=== PATIENT | male | born 1970 | race Two or more races ===

== ENCOUNTER 2021-12-01 11:12 | Inpatient (IN) | payer MEDICAID ==
[~2021-12-01] VITALS: Ht 167.6 cm; Wt 78.0 kg
[2021-12-01] MEDS ORDERED: SODIUM CHLORIDE 0.9% 1,000 ML IVB ONE (11:30)
[2021-12-01] MEDS ORDERED: KETOROLAC TROMETH 30 MG/ML 1ML VIAL IV ONE (11:30)
[2021-12-01 12:24] LABS: Albumin 4.1 g/dL (3.4-5.0); Calcium 9.3 mg/dL (8.5-10.1); Potassium 3.9 mmol/L (3.5-5.1)
[2021-12-01 12:32] LABS: BUN/Creatinine Ratio 19.8; Bilirubin, Total 0.5 mg/dL (0.2-1.0); Total Protein 7.5 g/dL (6.4-8.2)
[2021-12-01 12:55] LABS: Basophils # (auto) 0 10 ^3/uL (0-0.2); Basophils % (auto) 0.5 % (0.0-2.0); Eosinophils # (auto) 0.1 10 ^3/uL (0-0.8); Eosinophils % (auto) 2.1 % (0.0-7.0); Hematocrit 41.4 % (41.0-53.0); Hemoglobin 14.5 g/dL (13.5-17.5); Lymphocytes % (auto) 30.5 % (10.0-50.0); Mean Corpuscular Hemoglobin 30.8 pg (28.0-32.0); Mean Corpuscular Hgb Conc. 34.9 g/dL (32.0-36.0); Mean Corpuscular Volume 88.2 fL (80.0-100.0); Monocytes # (auto) 0.4 10 ^3/uL (0-1.3); Monocytes % (auto) 6.3 % (0.0-12.0); Neutrophils % (auto) 60.6 % (37.0-80.0); Nucleated Red Blood Cells % 0.1 %; Red Blood Cells 4.69 10^6/uL (4.5-5.90); Red Cell Distribution Width 12.6 % (11.8-14.3); White Blood Cell 6.5 10^3/uL (4.4-10.8)
[2021-12-01] MEDS ORDERED: NITROGLYCERIN 0.4 MG SL TAB SL PRN (13:00)
[2021-12-01] MEDS ORDERED: MORPHINE SULFATE INJECTION 2 MG/ML SYRG IV PRN (13:00)
[2021-12-01] MEDS ORDERED: LACTULOSE 20Gm/30ML SOLN PO PRN (13:15)
[2021-12-01] MEDS ORDERED: HYDROcodone-ACET 5/325MG TAB PO PRN ×2 (13:15)
[2021-12-01] MEDS ORDERED: HYDROcodone-ACET 5/325MG TAB PO ONE (13:15)
[2021-12-01] MEDS ORDERED: cefTRIAXone 1GM/50ML D5W 50 ML IV ONE (13:15)
[2021-12-01] MEDS ORDERED: hydrALAZINE HCL 20 MG/ML VL IV PRN (13:15)
[2021-12-01] MEDS ORDERED: LORazepam 0.5 MG TAB PO PRN (13:15)
[2021-12-01] MEDS ORDERED: DOCUSATE SOD 100 MG CAP PO PRN (13:15)
[2021-12-01] MEDS ORDERED: ONDANSETRON HCL 4 MG/2 ML VIAL IV PRN (13:15)
[2021-12-01 13:25] LABS: Urine Bacteria NONE SEEN /hpf (None Seen); Urine Blood 2+ /uL (Negative); Urine Mucus FEW (None Seen); Urine Specific Gravity 1.019 (1.001-1.035); Urine WBC 16 /hpf (0 - 3)
[2021-12-01] MEDS: SODIUM CHLORIDE 0.9% 1,000 ML IV SCH (14:26)
[2021-12-01 14:43] LABS: Phosphorus 4.2 mg/dL (2.5-4.90)
[2021-12-01 14:44] LABS: INR 1.01 (0.9-1.15); Partial Thromboplastin Time 26.4 sec (23.6-33.0)
[2021-12-01 17:00] VITALS: BP 128/75
[2021-12-01] MEDS: TAMSULOSIN HYDROCHLORIDE 0.4 MG CAP PO SCH (17:25)
[2021-12-01 20:30] VITALS: BP 117/82
[2021-12-01] MEDS: ATORVASTATIN 20 MG TAB PO SCH (22:13)
[2021-12-02] MEDS: SODIUM CHLORIDE 0.9% 1,000 ML IV SCH ×2 (05:55→21:09)
[2021-12-02 06:00] VITALS: BP 108/75
[2021-12-02 08:00] VITALS: BP 106/71
[2021-12-02 08:37] LABS: Basophils # (auto) 0 10 ^3/uL (0-0.2); Basophils % (auto) 0.3 % (0.0-2.0); Eosinophils # (auto) 0.2 10 ^3/uL (0-0.8); Eosinophils % (auto) 3.1 % (0.0-7.0); Hematocrit 36.9 % (41.0-53.0); Hemoglobin 13.2 g/dL (13.5-17.5); Lymphocytes # (auto) 1.7 10 ^3/uL (0.4-5.4); Lymphocytes % (auto) 32.6 % (10.0-50.0); Mean Corpuscular Hemoglobin 31.3 pg (28.0-32.0); Mean Corpuscular Hgb Conc. 35.8 g/dL (32.0-36.0); Mean Corpuscular Volume 87.3 fL (80.0-100.0); Monocytes # (auto) 0.3 10 ^3/uL (0-1.3); Monocytes % (auto) 6.1 % (0.0-12.0); Neutrophils % (auto) 57.9 % (37.0-80.0); Nucleated Red Blood Cells % 0.1 %; Potassium 3.6 mmol/L (3.5-5.1); Red Blood Cells 4.23 10^6/uL (4.5-5.90); Red Cell Distribution Width 12.7 % (11.8-14.3); White Blood Cell 5.3 10^3/uL (4.4-10.8)
[2021-12-02 08:48] LABS: INR 1.03 (0.9-1.15); Partial Thromboplastin Time 27.1 sec (23.6-33.0)
[2021-12-02 09:00] VITALS: BP 106/71
[2021-12-02 09:13] LABS: Amphetamine Screen, Urine NEGATIVE (NEGATIVE); Barbiturate Scree,Urine NEGATIVE (NEGATIVE); Benzodiazephine Screen, Urine NEGATIVE (NEGATIVE); Cannabinoid Screen, Urine NEGATIVE (NEGATIVE); Cocaine Screen, Urine NEGATIVE (NEGATIVE); Opiate Scree,Urine NEGATIVE (NEGATIVE); Phencyclidine Screen, Urine NEGATIVE (NEGATIVE)
[2021-12-02] MEDS: ENOXAPARIN SOD 40 MG/0.4 ML SYRINGE SC SCH (10:06)
[2021-12-02] MEDS: ASPirin 81 mg TAB PO SCH (10:06)
[2021-12-02 10:27] LABS: Albumin 3.3 g/dL (3.4-5.0); BUN/Creatinine Ratio 22.6; Bilirubin, Total 0.7 mg/dL (0.2-1.0); Calcium 8.3 mg/dL (8.5-10.1); Magnesium 2.3 mg/dL (1.6-2.6); Phosphorus 2.8 mg/dL (2.5-4.90); Total Protein 6.5 g/dL (6.4-8.2); Uric Acid 5.5 mg/dL (3.5-7.2)
[2021-12-02] MEDS: cefTRIAXone 1GM/50ML D5W 50 ML IV SCH (12:29)
[2021-12-02 13:00] VITALS: BP 115/78
[2021-12-02 17:00] VITALS: BP 111/76
[2021-12-02] MEDS: TAMSULOSIN HYDROCHLORIDE 0.4 MG CAP PO SCH (17:21)
[2021-12-02] MEDS: ATORVASTATIN 20 MG TAB PO SCH (21:09)
[2021-12-02 21:44] VITALS: BP 114/73
[2021-12-03 04:33] VITALS: BP 108/63
[2021-12-03 07:19] LABS: Potassium 3.6 mmol/L (3.5-5.1)
[2021-12-03 07:34] LABS: Albumin 3.6 g/dL (3.4-5.0); BUN/Creatinine Ratio 18.9; Basophils # (auto) 0 10 ^3/uL (0-0.2); Basophils % (auto) 0.6 % (0.0-2.0); Bilirubin, Total 0.8 mg/dL (0.2-1.0); Calcium 8.7 mg/dL (8.5-10.1); Eosinophils # (auto) 0.2 10 ^3/uL (0-0.8); Eosinophils % (auto) 3.6 % (0.0-7.0); Hematocrit 38.5 % (41.0-53.0); Hemoglobin 13.8 g/dL (13.5-17.5); Lymphocytes # (auto) 1.8 10 ^3/uL (0.4-5.4); Lymphocytes % (auto) 30.6 % (10.0-50.0); Magnesium 1.8 mg/dL (1.6-2.6); Mean Corpuscular Hemoglobin 31.2 pg (28.0-32.0); Mean Corpuscular Hgb Conc. 35.8 g/dL (32.0-36.0); Mean Corpuscular Volume 87.3 fL (80.0-100.0); Monocytes # (auto) 0.3 10 ^3/uL (0-1.3); Monocytes % (auto) 5.7 % (0.0-12.0); Neutrophils # (auto) 3.5 10 ^3/uL (1.6-8.6); Neutrophils % (auto) 59.5 % (37.0-80.0); Nucleated Red Blood Cells % 0.1 %; Phosphorus 3.3 mg/dL (2.5-4.90); Red Blood Cells 4.41 10^6/uL (4.5-5.90); Red Cell Distribution Width 12.6 % (11.8-14.3); White Blood Cell 5.9 10^3/uL (4.4-10.8)
[2021-12-03 07:46] LABS: INR 1.02 (0.9-1.15); Partial Thromboplastin Time 27.7 sec (23.6-33.0)
[2021-12-03 09:00] VITALS: BP 108/72
[2021-12-03] MEDS: ENOXAPARIN SOD 40 MG/0.4 ML SYRINGE SC SCH (09:56)
[2021-12-03] MEDS: ASPirin 81 mg TAB PO SCH (09:56)
[2021-12-03] MEDS: cefTRIAXone 1GM/50ML D5W 50 ML IV SCH (09:56)
[2021-12-03 13:00] VITALS: BP 99/52
[2021-12-03] MEDS: SODIUM CHLORIDE 0.9% 1,000 ML IV SCH (15:15)
[2021-12-03 17:00] VITALS: BP_SYST 102; BP_SYST 137; BP_DIAS 56; BP_DIAS 67
[2021-12-03] MEDS: TAMSULOSIN HYDROCHLORIDE 0.4 MG CAP PO SCH (18:02)
[2021-12-03] MEDS: ATORVASTATIN 20 MG TAB PO SCH (21:01)
[2021-12-04] VITALS (7 sets, daily range): BP systolic 107–124; BP diastolic 64–81
[2021-12-04 06:02] LABS: Basophils # (auto) 0 10 ^3/uL (0-0.2); Basophils % (auto) 0.4 % (0.0-2.0); Eosinophils # (auto) 0.2 10 ^3/uL (0-0.8); Eosinophils % (auto) 3.3 % (0.0-7.0); Hematocrit 37.8 % (41.0-53.0); Hemoglobin 13.7 g/dL (13.5-17.5); Lymphocytes # (auto) 2.3 10 ^3/uL (0.4-5.4); Lymphocytes % (auto) 35.5 % (10.0-50.0); Mean Corpuscular Hemoglobin 31.6 pg (28.0-32.0); Mean Corpuscular Hgb Conc. 36.2 g/dL (32.0-36.0); Mean Corpuscular Volume 87.3 fL (80.0-100.0); Monocytes # (auto) 0.4 10 ^3/uL (0-1.3); Monocytes % (auto) 6.5 % (0.0-12.0); Neutrophils # (auto) 3.5 10 ^3/uL (1.6-8.6); Neutrophils % (auto) 54.3 % (37.0-80.0); Red Blood Cells 4.33 10^6/uL (4.5-5.90); Red Cell Distribution Width 12.6 % (11.8-14.3); White Blood Cell 6.4 10^3/uL (4.4-10.8)
[2021-12-04 06:14] LABS: Potassium 3.5 mmol/L (3.5-5.1)
[2021-12-04 06:17] LABS: Albumin 3.5 g/dL (3.4-5.0); BUN/Creatinine Ratio 13.7; Calcium 8.8 mg/dL (8.5-10.1)
[2021-12-04 06:24] LABS: INR 1.03 (0.9-1.15)
[2021-12-04 06:33] LABS: Bilirubin, Total 0.8 mg/dL (0.2-1.0); Total Protein 6.9 g/dL (6.4-8.2)
[2021-12-04] MEDS: cefTRIAXone 1GM/50ML D5W 50 ML IV SCH (08:29)
[2021-12-04] MEDS: SODIUM CHLORIDE 0.9% 1,000 ML IV SCH (08:30)
[2021-12-04] MEDS: ASPirin 81 mg TAB PO SCH (09:30)
[2021-12-04] MEDS: ENOXAPARIN SOD 40 MG/0.4 ML SYRINGE SC SCH (09:30)
[2021-12-04] MEDS ORDERED: IODIXANOL 320MG/ML 100ML BTL IV ONE (10:36)
[2021-12-04] MEDS ORDERED: LIDOCAINE 2%HCL (LOCAL ANESTH.) INJ 20ML MDV ONE (10:37)
[2021-12-04] MEDS ORDERED: MIDAZOLAM HCL 2MG/2ML 2ml VIAL (1mg/ml) ONE (12:06)
[2021-12-04] MEDS ORDERED: fentaNYL CITRATE 100 MCG/2 ML VL ONE (12:06)
[2021-12-04] MEDS: MORPHINE SULFATE INJECTION 2 MG/ML SYRG IV PRN ×2 (14:25→20:43)
[2021-12-04] MEDS: TAMSULOSIN HYDROCHLORIDE 0.4 MG CAP PO SCH (18:12)
[2021-12-04] MEDS: ATORVASTATIN 20 MG TAB PO SCH (21:36)
[2021-12-05] MEDS: SODIUM CHLORIDE 0.9% 1,000 ML IV SCH (00:35)
[2021-12-05 05:32] VITALS: BP 98/64
[2021-12-05 06:05] LABS: Basophils # (auto) 0 10 ^3/uL (0-0.2); Basophils % (auto) 0.5 % (0.0-2.0); Eosinophils # (auto) 0.2 10 ^3/uL (0-0.8); Eosinophils % (auto) 2.5 % (0.0-7.0); Hematocrit 39.3 % (41.0-53.0); Hemoglobin 13.8 g/dL (13.5-17.5); Lymphocytes # (auto) 2.4 10 ^3/uL (0.4-5.4); Lymphocytes % (auto) 28.4 % (10.0-50.0); Mean Corpuscular Hemoglobin 30.9 pg (28.0-32.0); Mean Corpuscular Hgb Conc. 35.2 g/dL (32.0-36.0); Mean Corpuscular Volume 87.7 fL (80.0-100.0); Monocytes # (auto) 0.5 10 ^3/uL (0-1.3); Monocytes % (auto) 6.5 % (0.0-12.0); Neutrophils # (auto) 5.2 10 ^3/uL (1.6-8.6); Neutrophils % (auto) 62.1 % (37.0-80.0); Red Blood Cells 4.48 10^6/uL (4.5-5.90); Red Cell Distribution Width 12.8 % (11.8-14.3); White Blood Cell 8.4 10^3/uL (4.4-10.8)
[2021-12-05 06:27] LABS: Calcium 8.5 mg/dL (8.5-10.1); Potassium 3.8 mmol/L (3.5-5.1)
[2021-12-05 06:29] LABS: BUN/Creatinine Ratio 16.5
[2021-12-05] MEDS: cefTRIAXone 1GM/50ML D5W 50 ML IV SCH (08:10)
[2021-12-05 08:30] VITALS: BP 103/56
[2021-12-05 09:00] VITALS: BP 103/56
[2021-12-05] MEDS: ENOXAPARIN SOD 40 MG/0.4 ML SYRINGE SC SCH ×2 (09:43→09:47)
[2021-12-05] MEDS: ASPirin 81 mg TAB PO SCH (09:43)
[2021-12-05] MEDS ORDERED: LEVO750T64 PO (10:26)
[2021-12-05 13:00] VITALS: BP 107/78
[2021-12-05 13:02] VITALS: BP 107/78
== END 2021-12-05 17:02 | disposition home or self-care (01) | DRG 463 ==
LOC: ER 11:12 → OVERFLOW 12:53 → WEST WING 15:30
PROVIDERS: ADMIT Hospitalist; ATTEND Internal Medicine Pulmonary Disease
PROC: 0T9330Z Drainage of Right Kidney Pelvis with Drainage Device, Percutaneous Approach (ICD-10-PCS; principal; 2021-12-04)
PROC: BT41ZZZ Ultrasonography of Right Kidney (ICD-10-PCS; 2021-12-04)
PROC: BT1D1ZZ Fluoroscopy of Right Kidney, Ureter and Bladder using Low Osmolar Contrast (ICD-10-PCS; 2021-12-04)
DX: N13.6 Pyonephrosis (principal); E66.01 Morbid (severe) obesity due to excess calories; N20.2 Calculus of kidney with calculus of ureter; E78.5 Hyperlipidemia, unspecified; F17.210 Nicotine dependence, cigarettes, uncomplicated; Z98.1 Arthrodesis status; Z68.27 Body mass index [BMI] 27.0-27.9, adult; Z20.822 Contact with and (suspected) exposure to COVID-19
CPT/HCPCS: 36415; 50432; 74176; 74425; 76000; 76942; 80048; 80053; 80061; 80307; 81001; 83036; 83690; 83735; 83880; 84100; 84443; 84484; 84550; 85025; 85379; 85610; 85730; 87040; 87070; 87086; 87205; 87426; 93005; 96361; 96365; 96375; 99152; C1729; G0378; J0696; J1885; J2250; Q9967

== ENCOUNTER 2021-12-22 18:49 | Emergency (ER) | payer MEDICAID ==
[~2021-12-22] VITALS: Ht 167.6 cm; Wt 85.3 kg
[~2021-12-22 18:49] MED LIST: LEVO750T64 PO
[2021-12-22 19:47] LABS: Basophils # (auto) 0 10 ^3/uL (0-0.2); Basophils % (auto) 0.6 % (0.0-2.0); Eosinophils # (auto) 0.2 10 ^3/uL (0-0.8); Eosinophils % (auto) 2.6 % (0.0-7.0); Hematocrit 39.6 % (41.0-53.0); Hemoglobin 14.3 g/dL (13.5-17.5); Lymphocytes # (auto) 2.7 10 ^3/uL (0.4-5.4); Lymphocytes % (auto) 39.9 % (10.0-50.0); Mean Corpuscular Hemoglobin 31.2 pg (28.0-32.0); Mean Corpuscular Volume 86.5 fL (80.0-100.0); Monocytes # (auto) 0.4 10 ^3/uL (0-1.3); Monocytes % (auto) 6.4 % (0.0-12.0); Neutrophils # (auto) 3.4 10 ^3/uL (1.6-8.6); Neutrophils % (auto) 50.5 % (37.0-80.0); Nucleated Red Blood Cells % 0.1 %; Red Blood Cells 4.58 10^6/uL (4.5-5.90); Red Cell Distribution Width 12.6 % (11.8-14.3); White Blood Cell 6.7 10^3/uL (4.4-10.8)
[2021-12-22 20:01] LABS: Albumin 3.9 g/dL (3.4-5.0); Calcium 9.1 mg/dL (8.5-10.1); Potassium 3.7 mmol/L (3.5-5.1)
[2021-12-22 20:05] LABS: Bilirubin, Total 0.4 mg/dL (0.2-1.0); Total Protein 7.7 g/dL (6.4-8.2)
[2021-12-22 22:49] LABS: Urine Bacteria FEW /hpf (None Seen); Urine Blood 1+ /uL (Negative); Urine Mucus FEW (None Seen); Urine Specific Gravity 1.014 (1.001-1.035); Urine WBC 34 /hpf (0 - 3)
[2021-12-23 02:30] VITALS: BP 135/72
== END 2021-12-23 02:51 | disposition home or self-care (01) ==
LOC: ER 18:49
DX: Z43.6 Encounter for attention to other artificial openings of urinary tract (principal); E78.5 Hyperlipidemia, unspecified; F17.210 Nicotine dependence, cigarettes, uncomplicated; Z79.899 Other long term (current) drug therapy
CPT/HCPCS: 36415; 80053; 81001; 83605; 85025; 93005

== ENCOUNTER 2022-02-17 21:26 | Inpatient (IN) | payer MEDICAID ==
[~2022-02-17] VITALS: Ht 167.6 cm; Wt 84.1 kg
[2022-02-18 03:01] LABS: Urine Bacteria NONE SEEN /hpf (None Seen); Urine Blood 1+ /uL (Negative); Urine Mucus FEW (None Seen); Urine Specific Gravity 1.019 (1.001-1.035); Urine WBC 57 /hpf (0 - 3)
[2022-02-18] MEDS ORDERED: PROMETHAZINE HCL 25 MG/ML 1ML IV ONE (09:45)
[2022-02-18] MEDS ORDERED: KETOROLAC TROMETH 30 MG/ML 1ML VIAL IV ONE (09:45)
[2022-02-18 10:39] LABS: Basophils # (auto) 0 10 ^3/uL (0-0.2); Basophils % (auto) 0.4 % (0.0-2.0); Eosinophils # (auto) 0.2 10 ^3/uL (0-0.8); Eosinophils % (auto) 3.4 % (0.0-7.0); Hematocrit 39.1 % (41.0-53.0); Hemoglobin 13.8 g/dL (13.5-17.5); Lymphocytes # (auto) 1.9 10 ^3/uL (0.4-5.4); Lymphocytes % (auto) 32.4 % (10.0-50.0); Mean Corpuscular Hemoglobin 31.3 pg (28.0-32.0); Mean Corpuscular Hgb Conc. 35.4 g/dL (32.0-36.0); Mean Corpuscular Volume 88.5 fL (80.0-100.0); Monocytes # (auto) 0.4 10 ^3/uL (0-1.3); Monocytes % (auto) 6.5 % (0.0-12.0); Neutrophils # (auto) 3.3 10 ^3/uL (1.6-8.6); Neutrophils % (auto) 57.3 % (37.0-80.0); Nucleated Red Blood Cells % 0.1 %; Red Blood Cells 4.41 10^6/uL (4.5-5.90); Red Cell Distribution Width 12.7 % (11.8-14.3); White Blood Cell 5.7 10^3/uL (4.4-10.8)
[2022-02-18 10:45] LABS: Potassium 3.9 mmol/L (3.5-5.1)
[2022-02-18 10:52] LABS: Albumin 3.7 g/dL (3.4-5.0); BUN/Creatinine Ratio 14.6; Bilirubin, Total 0.9 mg/dL (0.2-1.0); Total Protein 7.5 g/dL (6.4-8.2)
[2022-02-18] MEDS ORDERED: MORPHINE SULFATE 4 MG/ML SYR/VIAL IV PRN (12:15)
[2022-02-18] MEDS ORDERED: MORPHINE SULFATE INJECTION 2 MG/ML SYRG IV PRN (12:15)
[2022-02-18] MEDS ORDERED: ONDANSETRON HCL 4 MG/2 ML VIAL IV PRN (12:15)
[2022-02-18] MEDS ORDERED: CIPROFLOXACIN 400MG/200ML 200 ML IV ONE (12:30)
[2022-02-18] MEDS: SODIUM CHLORIDE 0.9% 1,000 ML IV SCH (12:56)
[2022-02-18 13:00] VITALS: BP 98/60
[2022-02-18 14:18] VITALS: BP 132/78
[2022-02-18 17:00] VITALS: BP 101/61
[2022-02-18 22:00] VITALS: BP 110/65
[2022-02-18] MEDS: CIPROFLOXACIN 400MG/200ML 200 ML IV SCH (22:20)
[2022-02-19] MEDS: SODIUM CHLORIDE 0.9% 1,000 ML IV SCH ×2 (01:24→08:15)
[2022-02-19 05:45] VITALS: BP 97/58
[2022-02-19 09:00] VITALS: BP 127/87
[2022-02-19] MEDS: CIPROFLOXACIN 400MG/200ML 200 ML IV SCH (09:33)
[2022-02-19 09:50] LABS: Partial Thromboplastin Time 25.5 sec (23.6-33.0)
[2022-02-19] MEDS ORDERED: ENOXAPARIN SOD 40 MG/0.4 ML SYRINGE SC SCH (10:00)
[2022-02-19] MEDS ORDERED: TAMSULOSIN HYDROCHLORIDE 0.4 MG CAP PO ONE (10:45)
[2022-02-19 13:00] VITALS: BP_SYST 113; BP_SYST 131; BP_DIAS 100; BP_DIAS 79
[2022-02-20] MEDS ORDERED: levoFLOXacin 500 MG TAB PO SCH (10:00)
[2022-02-20] MEDS ORDERED: TAMSULOSIN HYDROCHLORIDE 0.4 MG CAP PO SCH (18:00)
== END 2022-02-19 15:40 | disposition home or self-care (01) | DRG 463 ==
LOC: ER 21:35 → OVERFLOW 02-18 12:19 → CENTRAL 02-18 13:21
PROVIDERS: ADMIT Registered Nurse; ATTEND Internal Medicine
DX: N13.6 Pyonephrosis (principal); E66.01 Morbid (severe) obesity due to excess calories; E78.5 Hyperlipidemia, unspecified; N18.2 Chronic kidney disease, stage 2 (mild); R80.9 Proteinuria, unspecified; Z20.822 Contact with and (suspected) exposure to COVID-19; F17.210 Nicotine dependence, cigarettes, uncomplicated; N26.1 Atrophy of kidney (terminal); Z87.442 Personal history of urinary calculi; Z83.3 Family history of diabetes mellitus; Z80.0 Family history of malignant neoplasm of digestive organs; Z68.29 Body mass index [BMI] 29.0-29.9, adult; Z93.6 Other artificial openings of urinary tract status
CPT/HCPCS: 36415; 74176; 80053; 81001; 85025; 85610; 85730; 87086; 96365; 96375; G0378; J1885

== ENCOUNTER 2022-06-15 17:02 | Emergency (ER) | payer MEDICAID ==
[~2022-06-15] VITALS: Ht 167.6 cm; Wt 90.0 kg
[2022-06-15 20:08] LABS: Urine Bacteria NONE SEEN /hpf (None Seen); Urine Blood Negative /uL (Negative); Urine Mucus FEW (None Seen); Urine Specific Gravity 1.022 (1.001-1.035); Urine WBC 5 /hpf (0 - 3)
[2022-06-15 22:01] LABS: Basophils # (auto) 0 10 ^3/uL (0-0.2); Basophils % (auto) 0.6 % (0.0-2.0); Eosinophils # (auto) 0.2 10 ^3/uL (0-0.8); Eosinophils % (auto) 2.4 % (0.0-7.0); Hematocrit 42.3 % (41.0-53.0); Hemoglobin 14.2 g/dL (13.5-17.5); Lymphocytes # (auto) 2.4 10 ^3/uL (0.4-5.4); Lymphocytes % (auto) 38.7 % (10.0-50.0); Mean Corpuscular Hemoglobin 29.4 pg (28.0-32.0); Mean Corpuscular Hgb Conc. 33.7 g/dL (32.0-36.0); Mean Corpuscular Volume 87.3 fL (80.0-100.0); Monocytes # (auto) 0.4 10 ^3/uL (0-1.3); Monocytes % (auto) 5.6 % (0.0-12.0); Neutrophils # (auto) 3.3 10 ^3/uL (1.6-8.6); Neutrophils % (auto) 52.7 % (37.0-80.0); Red Blood Cells 4.84 10^6/uL (4.5-5.90); Red Cell Distribution Width 12.9 % (11.8-14.3); White Blood Cell 6.3 10^3/uL (4.4-10.8)
[2022-06-15 22:17] LABS: Calcium 8.8 mg/dL (8.5-10.1); Potassium 3.7 mmol/L (3.5-5.1)
[2022-06-15 22:19] LABS: BUN/Creatinine Ratio 15.9; Bilirubin, Total 0.4 mg/dL (0.2-1.0)
[2022-06-16 02:12] VITALS: BP 119/82
[2022-06-16] MEDS ORDERED: KETOROLAC TROMETH 30 MG/ML 1ML VIAL IM ONE (05:15)
[2022-06-16] MEDS ORDERED: CEPHALEXIN 250 MG CAP PO ONE (05:15)
[2022-06-16] MEDS ORDERED: CEPH-510 PO (05:24)
[2022-06-16] MEDS ORDERED: HYDR-4902 PO (05:25)
== END 2022-06-16 07:12 | disposition home or self-care (01) ==
LOC: ER 17:04
DX: R10.9 Unspecified abdominal pain (principal); F17.210 Nicotine dependence, cigarettes, uncomplicated; E78.5 Hyperlipidemia, unspecified; Z87.442 Personal history of urinary calculi
CPT/HCPCS: 36415; 74176; 80053; 81001; 85025; 96372; 99284; J1885

== ENCOUNTER 2024-12-20 10:06 | Inpatient (IN) | payer MEDICAID ==
[2024-12-20] VITALS (9 sets, daily range): BP systolic 116–123; BP diastolic 65–77; PULSE 70–84; RESP 16–20; TEMP 97.5–97.6; O2SAT 95–100
[~2024-12-20] VITALS: Ht 167.6 cm; Wt 92.1 kg
[~2024-12-20 10:06] MED LIST changes: +CEPH-510 PO; +HYDR-4902 PO; +LEVO750T40 PO; -LEVO750T64 PO
--- NOTE | 2024-12-20 10:54 | ED.PDOC ---
General HPI Comments 54y M who presents to the ED for chief complaint of L flank pain. Pt states he has been having L sided abdominal pain radiating to the L flank for the past 4 days. Pt states the pain is constant, with no noted exacerbating or relieving factors. Pt states he has been having associated dysuria but otherwise denies hematuria, fever, chills, nausea, vomiting or diarrhea. Pt states he has previously had kidneys stones on the R with associated lithotripsy and states it feels the same now. Pt states he has been taking naproxen for his pain but states it has not helped. Pt in the ED, has noted stable vitals with noted temp of 98.1 F, BP of 129/79 and 02 sat of 96% on room air with noted all other VS in normal range. Pt otherwise denies any other symptoms at this time. Chief Complaint: Flank Pain Time Seen by MD: 09:52 Primary Care Provider: JONO Reviewed notes: Nurses Notes, Medications, Allergies Allergies: Coded Allergies: NO KNOWN ALLERGIES (Unverified , 12/22/11) Home Meds Active Scripts Hydrocodone-Acetaminophen (Hydrocodone Bitartrate/AC 5-325 mg) 1 Tab Tab, 1 TAB PO Q8HR PRN for 3 Days, #9 TAB Prov:KO REYNAGA MD 06/16/22 Cephalexin ( Keflex 500) 500 Mg Cap, 1 CAP PO BID for 3 Days, #6 CAP Prov:KO REYNAGA MD 06/16/22 Levofloxacin Hemihydrate (LEVOFLOXACIN) 750 Mg Tab, 1 TAB PO DAILY, #7 TAB Prov:NIKOLE HARDWICK MD 12/05/21 Reported Medications Budesonide-Formoterol Fumarate (Budesonide/Formoterol Fum 80-4.5 Mcg/Act) 1 Aer Aer, 1 AER IN BID, AER 12/20/24 Cyclobenzaprine HCl (Cyclobenzaprine Hydrochlo) 5 Mg Tab, 1 12/20/24 Discontinued Reported Medications Albuterol Sulfate (VENTOLIN MDI) 90 Mcg Ih, 90 MCG IN, INH 12/20/24 Information Source: Patient Mode of Arrival: Ambulatory Brought in by: self Past Medical History PAST MEDICAL HISTORY: High Lipids, Kidney Stones Surgical History: Denies all surgeries Family History Family History: No family hx of Cancer, No family hx of DM, No family hx of Heart linda, No family hx of HTN Social History Smoker: Cigarettes, Less Than 1 Pack/Day Alcohol: Occasionally Drugs: Denies Drug Use Lives In: Home Constitutional: denies: chills, diaphoresis, fatigue, fever, malaise, sweats, weakness, others EENTM: denies: blurred vision, double vision, ear bleeding, ear discharge, ear drainage, ear pain, ear ringing, eye pain, eye redness, hearing loss, mouth pain, mouth swelling, nasal discharge, nose bleeding, nose congestion, nose pain, photophobia, tearing, throat pain, throat swelling, voice changes, others Respiratory: denies: cough, hemoptysis, orthopnea, SOB at rest, shortness of breath, SOB with excertion, stridor, wheezing, others Cardiovascular: denies: chest pain, dizzy spells, diaphoresis, Dyspnea on exertion, edema, irregular heart beat, left arm pain, lightheadedness, palpitations, PND, syncope, others Gastrointestinal: reports: abdominal pain; denies: abdomen distended, blood streaked bowels, constipated, diarrhea, dysphagia, difficulty swallowing, hematemesis, melena, nausea, poor appetite, poor fluid intake, rectal bleeding, rectal pain, vomiting, others Genitourinary: reports: dysuria, flank pain; denies: burning, frequency, hematuria, incontinence, penile discharge, penile sore, pain, testicle pain, testicle swelling, urgency, others Neurological: denies: dizziness, fainting, headache, left sided numbness, left sided weakness, numbness, paresthesia, pre-existing deficit, right sided numbness, right sided weakness, seizure, speech problems, tingling, tremors, weakness, others Musculoskeletal: denies: back pain, gout, joint pain, joint swelling, muscle pain, muscle stiffness, neck pain, others Integumetry: denies: bruises, change in color, change in hair/nails, dryness, laceration, lesions, lumps, rash, wounds, others Allergic/Immunocompromised: denies: Difficulty Healing, Frequent Infections, Hives, Itching, others Hematologic/Lymphatic: denies: anemia, blood clots, easy bleeding, easy bruising, swollen glands, others Endocrine: denies: excessive hunger, excessive sweating, excessive thirst, excessive urination, flushing, intolerance to cold, intolerance to heat, unexplained weight gain, unexplained weight loss, others Psychiatric: denies: anxiety, bipolar disorder, depression, hopeless, panic disorder, schizophrenia, sleepless, suicidal, others All Other Systems: Reviewed and Negative Physical Exam General Appearance: Mild Distress HEENT: PERRL/EOMI Neck: Full Range of Motion, Normal Inspection Respiratory: Lungs Clear, No Accessory Muscle Use, No Respiratory Distress, Normal Breath Sounds Cardiovascular: No Edema, No JVD, Regular Rate/Rhythm Breast Exam: Deferred Gastrointestinal: LLQ, Soft, Tenderness Genitalia: Deferred Pelvic: Deferred Rectal: Deferred Extremities: Normal inspection, Normal range of motion, No pedal edema Neurologic: Alert (Oriented x4), Normal Affect, Normal Mood, Other (Ambulatory. No gross focal deficit.) Cerebellar Function: NOT DONE Reflexes: NOT DONE Skin: Dry, Normal Color, Warm Lymphatic: NOT DONE Was a procedure done? Was a procedure done?: No Differential Diagnosis Kidney stone (Female): N/A Kidney stone (Male): Pyelonephritis, Renal failure, Strain, Urinary obstru ction, Urolithiasis, Urinary tract infection X-Ray, Labs, Meds, VS Vital Signs Date Time Temp Pulse Resp B/P (MAP) Pulse Ox O2 Delivery O2 Flow Rate FiO2 12/20/24 13:05 97.5 78 16 115/78 (90) 95 97.5 12/20/24 10:35 73 17 96 Room Air* 0 21 12/20/24 10:35 97.9 73 17 143/72 (95) 96 97.9 12/20/24 10:13 98.1 82 18 129/79 (96) 96 Lab Test 12/20/24 10:48 12/20/24 10:12 Range/Units White Blood Count 7.1 4.4-10.8 10^3/uL Red Blood Count 5.04 4.5-5.90 10^6/uL Hemoglobin 15.4 13.5-17.5 g/dL Hematocrit 45.6 41.0-53.0 % Mean Corpuscular Volume 90.4 80.0-100.0 fL Mean Corpuscular Hemoglobin 30.6 28.0-32.0 pg Mean Corpuscular Hemoglobin Concent 33.9 32.0-36.0 g/dL Red Cell Distribution Width 13.4 11.8-14.3 % Platelet Count 251 140-450 10^3/uL Mean Platelet Volume 6.9 6.9-10.8 fL Neutrophils (%) (Auto) 70.3 37.0-80.0 % Lymphocytes (%) (Auto) 22.3 10.0-50.0 % Monocytes (%) (Auto) 5.4 0.0-12.0 % Eosinophils (%) (Auto) 1.5 0.0-7.0 % Basophils (%) (Auto) 0.5 0.0-2.0 % Neutrophils # (Auto) 5.0 1.6-8.6 10 ^3/uL Lymphocytes # (Auto) 1.6 0.4-5.4 10 ^3/uL Monocytes # (Auto) 0.4 0-1.3 10 ^3/uL Eosinophils # (Auto) 0.1 0-0.8 10 ^3/uL Basophils # (Auto) 0 0-0.2 10 ^3/uL Nucleated Red Blood Cells 0.1 % Sodium Level 139 136-145 mmol/L Potassium Level 4.0 3.5-5.1 mmol/L Chloride Level 106 98-107 mmol/L Carbon Dioxide Level 26 20-31 mmol/L Anion Gap 7 5-15 Blood Urea Nitrogen 13 9-23 mg/dL Creatinine 1.11 0.700-1.30 mg/dL Glomerular Filtration Rate Calc 79 >90 mL/min BUN/Creatinine Ratio 11.7 10.0-20.0 Serum Glucose 119 H 74-106 mg/dL Calcium Level 9.6 8.7-10.4 mg/dL Urine Color Light-yellow Yellow Urine Clarity Clear Clear Urine pH 6.0 5.0-9.0 Urine Specific [place] 1.014 1.001-1.035 Urine Protein Trace H Negative Urine Ketones Negative Negative Urine Blood 3+ H Negative /uL Urine Nitrite Negative Negative Urine Bilirubin Negative Negative Urine Urobilinogen Normal Negative mg/dL Urine Leukocyte Esterase Negative Negative /uL Urine RBC 854 0 - 3 /hpf Urine Microscopic WBC 3 0-3 /HPF Urine Squamous Epithelial Cells Few <5 /hpf Urine Bacteria None seen None Seen /hpf Urine Mucus Few None Seen Urine Glucose Normal Normal mg/dL Current Medications Medications (Trade) Dose Ordered Sig/Annabella Route Start Time Stop Time Status Last Admin Sodium Chloride 1,000 ml @ 1,000 mls/hr Q1H ONCE IV 12/20/24 10:45 12/20/24 11:44 DC 12/20/24 10:58 Ketorolac Tromethamine (Toradol Injection) 30 mg ONCE ONCE IV 12/20/24 10:45 12/20/24 10:46 DC 12/20/24 10:58 Magnesium Sulfate/ Dextrose 100 ml @ 100 mls/hr Q1H IV 12/20/24 10:45 12/20/24 12:44 DC 12/20/24 12:10 Ondansetron HCl (Zofran) 4 mg ONCE ONCE IV 12/20/24 10:45 12/20/24 10:46 DC 12/20/24 10:58 Ceftriaxone Sodium 50 ml @ 100 mls/hr ONCE ONCE IV 12/20/24 11:30 12/20/24 11:59 DC 12/20/24 11:55 Sodium Chloride 1,000 ml @ 100 mls/hr Q10H IV 12/20/24 14:30 12/20/24 15:32 PROCEDURE(s): ABPL - CT AB PEL WO CON-NO ORAL OR IV REASON: L flank pain rad to LLQ ORDER NUMBER(s): [id number], ACCESSION NUMBER(s): [id number] Procedure: CT CT AB PEL WO CON-NO ORAL OR IV 12/20/2024 10:25 AM Indication: L flank pain rad to LLQ Comparison Study: None Technique: Axial images were obtained and reformatted in coronal and sagittal planes. All CT scans at this medical facility are performed using dose modulation techniques as appropriate to a performed exam including the following: Automated exposure control was utilized; adjustment of the MA and/or KV according to patient size; and use of iterative reconstruction technique. CT Dose: CTDI volume is 14.4 mGy. Dose-length product is 956 mGy*cm FINDINGS: Lower Chest: Subcentimeter calcified granuloma in the base lobe. Hepatobiliary: Hepatomegaly and hepatic steatosis. Spleen: Unremarkable. Pancreas: Unremarkable. Adrenal Glands: Unremarkable. tract: The kidneys are normal in size bilaterally . Few subcentimeter nonobstructing bilateral renal calculi are seen measuring up to 7 mm in the right kidney. There is moderate left hydronephrosis and proximal hydroureter due to a 5 mm obstructing stone in the mid to distal left ureter. The urinary bladder is unremarkable. GI tract: The stomach is grossly normal in appearance. No evidence of small bowel obstruction. The large bowel is unremarkable. The appendix is normal. Lymphatics: No mesenteric, retroperitoneal or periportal lymphadenopathy. Vasculature: Aorta is normal in caliber. Scattered calcified plaques are noted. Pelvic Organs: Prostate is moderately enlarged. Bones/soft tissues: No acute abnormality. Discectomy, disc spacer placement laminectomy Other: None. IMPRESSION: 1. Moderate left hydronephrosis due to a 5 mm obstructing stone in mid to distal ureter.Several 2. Subcentimeter nonobstructing bilateral renal calculi measuring up to 7 mm. 3. Hepatomegaly and hepatic steatosis. X-Ray, Labs, Meds, VS Comment 54-year-old male with a history of dyslipidemia and kidney stones complaining of left lower quadrant pain radiating to the left flank Vitals remarkable for BP 143/72 Exam remarkable for left lower quadrant tenderness to palpation Rhythm strip independently interpreted by me: Sinus rhythm, rate 82, no ectopy. CT abdomen and pelvis IMPRESSION: 1. Moderate left hydronephrosis due to a 5 mm obstructing stone in mid to distal ureter.Several 2. Subcentimeter nonobstructing bilateral renal calculi measuring up to 7 mm. 3. Hepatomegaly and hepatic steatosis. CBC and basic metabolic panel unremarkable, UA pending Patient treated with the following in the ED: 1 L 0.9 normal saline IV bolus, Toradol 30 mg IV, magnesium sulfate 2 g IV, morphine 4 mg IV, Rocephin 1 g IV On re-evaluation, patient states pain has improved. Vitals were stable. Plan is to admit the patient for Urology evaluation. Time of 1ST Reevaluation: 10:30 Reevaluation 1ST: Unchanged Patient Education/Counseling: Diagnosis, Treatment Family Education/Counseling: No Family Present Additional Information nan- cbc, ua, ct abd pelvis non con, bmp, -Reviewed patient's previous visit(s): - The following tests were ordered, and results were reviewed by me: cbc, ua, ct abd pelvis non con, bmp, - Additional information was gathered from interviewing the following indep endent Historian: patient - I reviewed and agreed with the following test results read by other provider: radiologist - I discussed treatments and results with medical personnel and: patient Comprehensive systems review obtained and negative except for what is stated in the HPI. Departure 1 Departure Time of Disposition: 11:48 Impression: Primary Impression: Hydronephrosis with renal and ureteral calculus obstruction Disposition: ADMITTED INPATIENT Admit to: Med Surg Condition: Fair Critical Care Note Critical Care Time?: No Stability Stability form required: No Heart Score Heart Score: Heart Score Response (Comments) Value History N/A 0 EKG N/A 0 Age N/A 0 Risk Factors N/A 0 Troponin N/A 0 Total 0 I personally scribed for ANITA AGUILAR MD ([facility]) on 12/20/24 at 10:54. Electronically submitted by Nayeli Barrera ([facility] I personally scribed for ANITA AGUILAR MD ([email or web address]) on 12/20/24 at 11:03. Electronically submitted by Nayeli [facility] ANIAT AGUILAR MD Dec 20, 2024 10:54
[2024-12-20] MEDS: ONDANSETRON HCL 4 MG/2 ML VIAL IV ONE (10:58)
[2024-12-20] MEDS: MAGNESIUM SULFATE 1GM/100ML 100 ML IV SCH (10:58)
[2024-12-20] MEDS: KETOROLAC TROMETH 30 MG/ML 1ML VIAL IV ONE (10:58)
[2024-12-20] MEDS: SODIUM CHLORIDE 0.9% 1,000 ML IV ONE (10:58)
[2024-12-20 11:07] LABS: Basophils # (auto) 0 10 ^3/uL (0-0.2); Basophils % (auto) 0.5 % (0.0-2.0); Eosinophils # (auto) 0.1 10 ^3/uL (0-0.8); Eosinophils % (auto) 1.5 % (0.0-7.0); Hematocrit 45.6 % (41.0-53.0); Hemoglobin 15.4 g/dL (13.5-17.5); Lymphocytes # (auto) 1.6 10 ^3/uL (0.4-5.4); Lymphocytes % (auto) 22.3 % (10.0-50.0); Mean Corpuscular Hemoglobin 30.6 pg (28.0-32.0); Mean Corpuscular Hgb Conc. 33.9 g/dL (32.0-36.0); Mean Corpuscular Volume 90.4 fL (80.0-100.0); Monocytes # (auto) 0.4 10 ^3/uL (0-1.3); Monocytes % (auto) 5.4 % (0.0-12.0); Neutrophils % (auto) 70.3 % (37.0-80.0); Nucleated Red Blood Cells % 0.1 %; Platelet Count (auto) 251 10^3/uL (140-450); Red Blood Cells 5.04 10^6/uL (4.5-5.90); Red Cell Distribution Width 13.4 % (11.8-14.3); White Blood Cell 7.1 10^3/uL (4.4-10.8)
[2024-12-20 11:13] LABS: Chloride 106 mmol/L (98-107); Sodium 139 mmol/L (136-145)
[2024-12-20 11:14] LABS: Anion Gap 7 (5-15); Calcium 9.6 mg/dL (8.7-10.4); Carbon Dioxide 26 mmol/L (20-31)
--- NOTE | 2024-12-20 11:16 | DVH ---
Procedure: CT CT AB PEL WO CON-NO ORAL OR IV 12/20/2024 10:25 AM Indication: L flank pain rad to LLQ Comparison Study: None Technique: Axial images were obtained and reformatted in coronal and sagittal planes. All CT scans at this medical facility are performed using dose modulation techniques as appropriate to a performed e xam including the following: Automated exposure control was utilized; adjustment of the MA and/or KV according to patient size; and use of iterative reconstruction technique. CT Dose: CTDI volume is 14. 4 mGy. Dose-length product is 956 mGy*cm FINDINGS: Lower Chest: Subcentimeter calcified granuloma in the base lobe. Hepatobiliary: Hepatomegaly and hepatic steatosis. Spleen: Unremarkable. Pancreas: Unremarkable. Adrenal Glands: Unremarkable. tract: The kidneys are normal in size bilaterally . Few subcentimeter nonobstructing bilateral re nal calculi are seen measuring up to 7 mm in the right kidney. There is moderate left hydronephrosis and proximal hydroureter due to a 5 mm obstructing stone in the mid to distal left ureter. The urinar y bladder is unremarkable. GI tract: The stomach is grossly normal in appearance. No evidence of small bowel obstruction. The la rge bowel is unremarkable. The appendix is normal. Lymphatics: No mesenteric, retroperitoneal or periportal lymphadenopathy. Vasculature: Aorta is normal in caliber. Scattered calcified plaques are noted. Pelvic Organs: Prostate is moderately enlarged. Bones/soft tissues: No acute abnormality. Discectomy, disc spacer placement laminectomy Other: None. IMPRESSION: 1. Moderate left hydronephrosis due to a 5 mm obstructing stone in mid to distal ureter.Several 2. Subcentimeter nonobstructing bilateral renal calculi measuring up to 7 mm. 3. Hepatomegaly and hepatic steatosis.
[2024-12-20 11:19] LABS: BUN/Creatinine Ratio 11.7 (10.0-20.0); Blood Urea Nitrogen 13 mg/dL (9-23)
[2024-12-20 11:28] LABS: Glucose 119 mg/dL (74-106)
[2024-12-20] MEDS: MORPHINE SULFATE 4 MG/ML SYR/VIAL IV ONE (11:55)
[2024-12-20] MEDS: cefTRIAXone 1GM/50ML D5W 50 ML IV ONE (11:55)
[2024-12-20 12:02] LABS: Urine Bacteria None Seen /hpf (None Seen)
[2024-12-20 12:14] LABS: Urine Blood 3+ /uL (Negative); Urine Clarity Clear (Clear); Urine Mucus FEW (None Seen); Urine Protein, UAD TRACE (Negative); Urine Specific Gravity 1.014 (1.001-1.035); Urine Squamous Epithelial Cell FEW /hpf (<5); Urine Urobilinogen Normal (Negative); Urine WBC 3 /HPF (0-3)
[2024-12-20 12:15] LABS: Urine Color Light-Yellow (Yellow)
[2024-12-20] MEDS ORDERED: CYCL-614 (15:28)
[2024-12-20] MEDS ORDERED: ACETAMINOPHEN 325 MG TAB PO PRN (15:30)
[2024-12-20] MEDS ORDERED: ONDANSETRON HCL 4 MG/2 ML VIAL IV PRN (15:30)
[2024-12-20] MEDS: SODIUM CHLORIDE 0.9% 1,000 ML IV SCH (15:32)
--- NOTE | 2024-12-20 15:32 | DVHHP2 ---
History of Present Illness Reason for Visit: Left flank pain History of Present Illness Ashwin Antoine is a 54-year-old male with past medical history of hyperlipidemia, CKD, UTI, right nephrostomy, and lithotripsy who presents to the ED with left flank pain and dysuria x4 days. Patient states that the pain is 7/10 constant and throbbing. He also reports that he has kidney stones in the past. Patient denies chest pain, shortness of breath, fever, chills, recent trauma or injury, recent illnesses, lightheadedness, weakness, wheezing, dizziness, nausea, vomiting, and diarrhea. Cardiovascular: hyperipidemia Renal/: Chronic renal failure, UTI Past Surgical History: Other (Lithotripsy and right nephrostomy) Family History: Cancer, DM, Other (Mom with colon cancer and diabetes and dad with diabetes) Smoke: Quit ALCOHOL: none (Quit) Drugs: None Lives: with Family Domestic Violence: Neg Review of Systems Genitourinary: Dysuria Musculoskeletal: other (Left flank pain) Allergies: Coded Allergies: NO KNOWN ALLERGIES (Unverified , 12/22/11) Medications Current Medications Medications Dose Ordered Sig/Annabella Route Start Time Stop Time Status Last Admin Dose Admin Tamsulosin HCl 0.4 mg QPM PO 12/20/24 18:00 Ceftriaxone Sodium 50 ml @ 100 mls/hr DAILY@09 IV 12/21/24 09:00 Sodium Chloride 1,000 ml @ 100 mls/hr Q10H IV 12/20/24 14:30 Acetaminophen/ Hydrocodone Bitart 1 tab Q4HP PRN PO 12/20/24 15:30 UNV Ondansetron HCl 4 mg Q4HP PRN IV 12/20/24 15:30 UNV Acetaminophen 650 mg Q6HP PRN PO 12/20/24 15:30 UNV Exam Vital Signs Vital Signs Date Time Temp Pulse Resp B/P (MAP) Pulse Ox O2 Delivery O2 Flow Rate FiO2 12/20/24 13:05 97.5 78 16 115/78 (90) 95 97.5 12/20/24 10:35 Room Air* 0 21 General Appearance: Alert, Oriented X3, Cooperative, No acute distress HEENT: Atraumatic, PERRLA, EOMI, Mucous membr. moist/pink Respiratory: Clear to auscultation, Normal air movement Cardiovascular: Regular rate, Normal S1, Normal S2, No murmurs Abdominal: Normal bowel sounds, Soft Extremities: No clubbing, No cyanosis, No edema, Normal pulses, No tenderness/swelling Skin: No significant lesion Neuro: Normal gait, Normal speech, Strength at 5/5 X4 ext, Normal tone, Sensation intact Psych/Mental Status: Mental status NL, Mood NL Labs/Xrays Labs Test 12/20/24 10:48 12/20/24 10:12 Range/Units White Blood Count 7.1 4.4-10.8 10^3/uL Red Blood Count 5.04 4.5-5.90 10^6/uL Hemoglobin 15.4 13.5-17.5 g/dL Hematocrit 45.6 41.0-53.0 % Mean Corpuscular Volume 90.4 80.0-100.0 fL Mean Corpuscular Hemoglobin 30.6 28.0-32.0 pg Mean Corpuscular Hemoglobin Concent 33.9 32.0-36.0 g/dL Red Cell Distribution Width 13.4 11.8-14.3 % Platelet Count 251 140-450 10^3/uL Mean Platelet Volume 6.9 6.9-10.8 fL Neutrophils (%) (Auto) 70.3 37.0-80.0 % Lymphocytes (%) (Auto) 22.3 10.0-50.0 % Monocytes (%) (Auto) 5.4 0.0-12.0 % Eosinophils (%) (Auto) 1.5 0.0-7.0 % Basophils (%) (Auto) 0.5 0.0-2.0 % Neutrophils # (Auto) 5.0 1.6-8.6 10 ^3/uL Lymphocytes # (Auto) 1.6 0.4-5.4 10 ^3/uL Monocytes # (Auto) 0.4 0-1.3 10 ^3/uL Eosinophils # (Auto) 0.1 0-0.8 10 ^3/uL Basophils # (Auto) 0 0-0.2 10 ^3/uL Nucleated Red Blood Cells 0.1 % Sodium Level 139 136-145 mmol/L Potassium Level 4.0 3.5-5.1 mmol/L Chloride Level 106 98-107 mmol/L Carbon Dioxide Level 26 20-31 mmol/L Anion Gap 7 5-15 Blood Urea Nitrogen 13 9-23 mg/dL Creatinine 1.11 0.700-1.30 mg/dL Glomerular Filtration Rate Calc 79 >90 mL/min BUN/Creatinine Ratio 11.7 10.0-20.0 Serum Glucose 119 H 74-106 mg/dL Calcium Level 9.6 8.7-10.4 mg/dL Urine Color Light-yellow Yellow Urine Clarity Clear Clear Urine pH 6.0 5.0-9.0 Urine Specific [place] 1.014 1.001-1.035 Urine Protein Trace H Negative Urine Ketones Negative Negative Urine Blood 3+ H Negative /uL Urine Nitrite Negative Negative Urine Bilirubin Negative Negative Urine Urobilinogen Normal Negative mg/dL Urine Leukocyte Esterase Negative Negative /uL Urine RBC 854 0 - 3 /hpf Urine Microscopic WBC 3 0-3 /HPF Urine Squamous Epithelial Cells Few <5 /hpf Urine Bacteria None seen None Seen /hpf Urine Mucus Few None Seen Urine Glucose Normal Normal mg/dL Procedure: CT CT AB PEL WO CON-NO ORAL OR IV 12/20/2024 10:25 AM Indication: L flank pain rad to LLQ Comparison Study: None Technique: Axial images were obtained and reformatted in coronal and sagittal planes. All CT scans at this medical facility are performed using dose modulation techniques as appropriate to a performed exam including the following: Automated exposure control was utilized; adjustment of the MA and/or KV according to patient size; and use of iterative reconstruction technique. CT Dose: CTDI volume is 14.4 mGy. Dose-length product is 956 mGy*cm FINDINGS: Lower Chest: Subcentimeter calcified granuloma in the base lobe. Hepatobiliary: Hepatomegaly and hepatic steatosis. Spleen: Unremarkable. Pancreas: Unremarkable. Adrenal Glands: Unremarkable. tract: The kidneys are normal in size bilaterally . Few subcentimeter nonobstructing bilateral renal calculi are seen measuring up to 7 mm in the right kidney. There is moderate left hydronephrosis and proximal hydroureter due to a 5 mm obstructing stone in the mid to distal left ureter. The urinary bladder is unremarkable. GI tract: The stomach is grossly normal in appearance. No evidence of small bowel obstruction. The large bowel is unremarkable. The appendix is normal. Lymphatics: No mesenteric, retroperitoneal or periportal lymphadenopathy. Vasculature: Aorta is normal in caliber. Scattered calcified plaques are noted. Pelvic Organs: Prostate is moderately enlarged. Bones/soft tissues: No acute abnormality. Discectomy, disc spacer placement laminectomy Other: None. IMPRESSION: 1. Moderate left hydronephrosis due to a 5 mm obstructing stone in mid to distal ureter.Several 2. Subcentimeter nonobstructing bilateral renal calculi measuring up to 7 mm. 3. Hepatomegaly and hepatic steatosis. Assessment/Plan Assessment/Plan Assessment Intractable left flank pain likely due to obstructing stone with dysuria Moderate left hydronephrosis due to a 5 mm obstructing stone in mid to distal ureter Hepatomegaly Hepatic steatosis History of alcohol use History of tobacco use History of hyperlipidemia History of CKD History of UTI History of right nephrostomy History of lithotripsy Plan Admit to [facility] UA IV antibiotics-ceftriaxone Antiemetics Pain management Mag IV given ED NS 1 L given ED IV fluids CT abdomen and pelvis Flomax ordered Strain urine Left kidney ultrasound ordered Urology consult Diet Discussed plan of care with patient and nurse Counseled patient on continuing cessation of alcohol and tobacco use Home medications reconciled DVT prophylaxis-not indicated patient ambulating Plan discussed with: Patient My Orders Orders - SERAFIN 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 Procedure Category Date Status Time Tamsulosin PHA 12/20/24 In Process Hydrochloride (Flomax) 18:00 Ceftriaxone 1gm/50ml PHA 12/21/24 In Process D5w (Rocephin) 09:00 Strain All Urine For DARYL 12/20/24 In Process Stones 14:25 Sodium Chloride 0.9% PHA 12/20/24 In Process 14:30 Npo Except For DARYL 12/20/24 In Process Medications 14:25 * Urology Consult CONS 12/20/24 Transmitted 14:25 Admit ADMIT 12/20/24 Transmitted 15:26 Allergies DARYL 12/20/24 Transmitted 15:26 Code Status CODE 12/20/24 Transmitted 15:26 Hydrocodone-Acet PHA 12/20/24 Transmitted 5/325mg Tab ([place] 15:30 Ondansetron Hcl PHA 12/20/24 Transmitted (Zofran) 15:30 Complete Blood Count LAB 12/21/24 Verified 04:00 Comprehensive LAB 12/21/24 Verified Metabolic Panel 04:00 Cardiac DIET 12/20/24 Transmitted Diet-2gna,Lofat,Lochol Dinner Acetaminophen Tablet PHA 12/20/24 Transmitted (Tylenol Tablet) 15:30 Morphine Sulfate PHA 12/20/24 Transmitted Injection 15:30 Date of Service: Dec 20, 2024 Billing Provider: SERAFIN HICKEY Common Visit Codes: [id number] INP/OBS CARE (HIGH) SERAFIN HICKEY Dec 20, 2024 15:32
[2024-12-20] MEDS ORDERED: ALBUAER3 IN (17:15)
--- NOTE | 2024-12-20 17:23 | DVH ---
EXAM: US KIDNEY HISTORY: left flank pain COMPARISON: CT scan performed earlier today TECHNIQUE: Real-time ultrasound performed utilizing grayscale and color techniques. FINDINGS: RIGHT KIDNEY: 11 cm in length. No hydronephrosis . A 0.3 cm echogenicity seen at midpole most lik carolyn a nonobstructing stone. No suspicious lesions identified. The small cysts noted in the kidney in the previous CT scan are not identified in this exam. LEFT KIDNEY: 10.8 cm in length. Mild hydronephrosis . A 0.3 cm echogenicity seen midpole, most li marianne a nonobstructing stone. No suspicious lesions identified. BLADDER: Not well evaluated due to lack of distention. OTHER: Liver parenchyma is diffusely echogenic. IMPRESSION: 1. Mild left hydronephrosis.Subcentimeter 2. Nonobstructing bilateral renal calculi. 3. Hepatic steatosis.
[2024-12-20] MEDS: TAMSULOSIN HYDROCHLORIDE 0.4 MG CAP PO SCH (17:55)
[2024-12-20] MEDS: HYDROcodone-ACET 5/325MG TAB PO PRN (18:56)
[2024-12-20] MEDS: BUDESONIDE (INHALATION) 0.5 MG/2 ML NEB NEB SCH (22:32)
[2024-12-20] MEDS: ALBUTEROL SULF 2.5 MG/0.5ML(0.5%) NEB SOLN NEB PRN (22:32)
[2024-12-20] MEDS ORDERED: BUDE1AER5 IN (22:32)
[2024-12-21] VITALS (10 sets, daily range): BP systolic 116–141; BP diastolic 71–89; PULSE 71–96; RESP 15–18; TEMP 97.6–98.2; O2SAT 93–100
[2024-12-21] MEDS: MORPHINE SULFATE INJ 2 MG/ml SYRG IV PRN (05:02)
[2024-12-21 07:35] LABS: Basophils # (auto) 0 10 ^3/uL (0-0.2); Basophils % (auto) 0.5 % (0.0-2.0); Eosinophils # (auto) 0.2 10 ^3/uL (0-0.8); Eosinophils % (auto) 2.4 % (0.0-7.0); Hematocrit 37.4 % (41.0-53.0); Hemoglobin 13.2 g/dL (13.5-17.5); Lymphocytes # (auto) 2.1 10 ^3/uL (0.4-5.4); Mean Corpuscular Hemoglobin 31.5 pg (28.0-32.0); Mean Corpuscular Hgb Conc. 35.4 g/dL (32.0-36.0); Mean Corpuscular Volume 88.9 fL (80.0-100.0); Monocytes # (auto) 0.4 10 ^3/uL (0-1.3); Monocytes % (auto) 6.4 % (0.0-12.0); Neutrophils # (auto) 3.6 10 ^3/uL (1.6-8.6); Neutrophils % (auto) 57.7 % (37.0-80.0); Nucleated Red Blood Cells % 0.4 %; Platelet Count (auto) 215 10^3/uL (140-450); Red Cell Distribution Width 13.2 % (11.8-14.3); White Blood Cell 6.3 10^3/uL (4.4-10.8)
[2024-12-21 07:47] LABS: Alanine Aminotransferase 25 U/L (7-40); Albumin 3.9 g/dL (3.2-4.8); Alkaline Phosphatase 69 U/L (46-116); Anion Gap 5 (5-15); Aspartate Aminotransferase 16 U/L (13-40); BUN/Creatinine Ratio 14.3 (10.0-20.0); Blood Urea Nitrogen 16 mg/dL (9-23); Calcium 8.6 mg/dL (8.7-10.4); Carbon Dioxide 25 mmol/L (20-31); Chloride 110 mmol/L (98-107); Glucose 106 mg/dL (74-106); Potassium 3.8 mmol/L (3.5-5.1); Sodium 140 mmol/L (136-145); Total Protein 6.4 g/dL (5.7-8.2)
[2024-12-21 07:48] LABS: Bilirubin, Total 0.9 mg/dL (0.2-1.0)
[2024-12-21 09:25] LABS: INR 0.97 (0.9-1.15); Partial Thromboplastin Time 27.7 SEC (24.5-34.5); Prothrombin Time 10.3 sec (9.3-11.8)
[2024-12-21] MEDS: cefTRIAXone 1GM/50ML D5W 50 ML IV SCH (09:59)
--- NOTE | 2024-12-21 13:44 | DVHPNRES ---
Progress Note Date Seen: Dec 21, 2024 Resident Creating Document: ROGELIO QUIROZ RESIDENT Medical Necessity Reason Pt with a Central, PICC or Fol: No Subjective Review of Systems Mr. Antoine this is a 54-year-old male with past medical history of right-sided nephrostomy and lithotripsy 1 year back, hyperlipidemia, CKD, UTI presents to the ER with a chief complaint of left flank pain radiating to the groin for the past week. Reports pain well micturition with no dysuria. Reports with the left flank pain is sharp in nature and reports it 10/[address] in intensity[address] Patient follows Dr. Sequeira as outpatient. He denies nausea/vomiting/fevers/chills/constipation or diarrhea at this moment. On admission, UA showed RBCs, CT abdomen pelvis completed which showed moderate left hydronephrosis 5 mm nonobstructing stone. Subcentimeter bilateral nonobstructive calculus, 7 mm. Hepatic steatosis. Urologist was consulted. Past medical/surgical history: See above PCP: Marcos, follows Dr. Sequeira urology Patient seen and examined at the bedside. Urology consulted. Started tamsulosin. Objective vital signs Vital Sign Date Time Temp Pulse Resp B/P (MAP) Pulse Ox O2 Delivery O2 Flow Rate FiO2 12/21/24 09:00 97.8 92 18 141/71 (94) 93 97.8 12/21/24 06:28 Room Air 0.0 12/21/24 06:28 21 Total Intake and Output 12/20/24 12/20/24 12/21/24 15:00 23:00 07:00 Intake Total 1250 ml 100 ml Output Total 425 ml Balance 1250 ml -325 ml medications Current Medications Medications Dose Ordered Sig/Annabella Route Start Time Stop Time Status Last Admin Dose Admin Tamsulosin HCl 0.4 mg QPM PO 12/20/24 18:00 12/20/24 17:55 0.4 MG Ceftriaxone Sodium 50 ml @ 100 mls/hr DAILY@09 IV 12/21/24 09:00 12/21/24 09:59 100 MLS/HR Sodium Chloride 1,000 ml @ 100 mls/hr Q10H IV 12/20/24 14:30 12/21/24 00:44 100 MLS/HR Acetaminophen/ Hydrocodone Bitart 1 tab Q4HP PRN PO 3/9/25 15:30 12/21/24 03:01 1 TAB Ondansetron HCl 4 mg Q4HP PRN IV 12/20/24 15:30 Acetaminophen 650 mg Q6HP PRN PO 12/20/24 15:30 Morphine Sulfate 2 mg Q4HPRN PRN IV 12/20/24 15:30 12/21/24 05:02 2 MG Budesonide 0.5 mg BID NEB 12/20/24 22:00 12/21/24 06:28 0.5 MG Albuterol 2.5 mg Q4HPRN PRN NEB 12/20/24 15:30 12/20/24 22:32 2.5 MG Examination Patient lying in bed, in no acute distress General: Well-built, afebrile, palor, mucosae are moist Cardiovascular: Regular S1 and S2. No murmurs, gallops or rubs. No JVD elevation. No pedal edema Respiratory: Normal B/L air entry on room air. Clear lung sounds on auscultation Abdomen: Soft, abdominal tenderness left-sided and suprapubic. nondistended, normoactive bowel sounds, no rebound tenderness, no organomegaly, no masses. L eft costovertebral angle tenderness. Genitourinary: Deferred MSK/skin: Mobilizes 4 limbs. Skin is dry and warm Neurological: No motor, no sensitive deficits, normal speech. Pupils are isocoric and reactive. Psych/Mental Status: A/Ox3 laboratory and microbiology Laboratory Tests 12/21/24 06:37 Test 12/21/24 06:37 Range/Units Serum Glucose 106 74-106 mg/dL Labs and/or images reviewed: Labs reviewed by me, Image(s) reviewed by me Problem List/Assessment/Plan Problem List/Assessment/Plan Bilateral nephrolithiasis L-sided 5 mm obstructing stone Left-sided moderate hydronephrosis Urology consulted Tamsulosin daily started IV NS 100 cc an hour IV ceftriaxone daily Hepatic steatosis likely MAYS Monitor Obesity Counseled regarding healthy lifestyle for more than 22 minutes Plan discussed with patient in which all questions have been answered Goals of care discussed with the patient for more than 27 minutes, full code status Case discussed with Dr. Gardner Plan discussed with: Patient My Orders My Orders Orders - ROGELIO QUIROZ RESIDENT Procedure Category Date Status Time Drug Screen LAB 12/21/24 Logged 08:23 Uric Acid LAB 12/21/24 Logged 11:08 Electrocardigram EKG 12/21/24 Logged 12:12 Renal DIET 12/21/24 Transmitted Standard(2gna,3gk,Lopho) Lunch Npo (Nothing By DIET 12/21/24 Transmitted Mouth) Diet Lunch Dietary Evaluation Review Comments: 1) Advance diet as medically feasible 2) Consider CCHO 60gm + low fat diet 3) Continue current plan of care Expected Outcomes/Goals: Pt will meet >75% estimated needs Fu 2-3 days Date of Service: Dec 21, 2024 Billing Provider: SYLVESTER GARDNER MD Common Visit Codes: [id number] INP/OBS CARE(HIGH) ROGELIO QUIROZ RESIDENT Dec 21, 2024 13:44 SYLVESTER GARDNER MD Dec 21, 2024 21:24
[2024-12-21] MEDS: CYANOCOBALAMIN (B-12) 1000 MCG/1 ML VIAL IM ONE (17:00)
[2024-12-21] MEDS: ERGOCALCIFEROL 50,000 UNIT(1.25MG) CAP PO SCH (17:00)
--- NOTE | 2024-12-21 17:56 | DVHINCON2 ---
Date of service: Dec 21, 2024 Referring Physician Hospitalist Reason for Consultation Left hydronephrosis Left flank pain History of Present Illness 54y M who presents to the ED for chief complaint of L flank pain. He is known to have undergone prior URSLL and ESWLs. CT Scan shows bilateral renal stones and 5 mm left mid/distal ureteral stone causing moderate hydronephrosis. Pt states he has been having L sided abdominal pain radiating to the L flank for the past 4 days. Pt states the pain is constant, with no noted exacerbating or relieving factors. Pt states he has been having associated dysuria but otherwise denies hematuria, fever, chills, nausea, vomiting or diarrhea. Pt states he has previously had kidneys stones on the R with associated lithotripsy and states it feels the same now. Pt states he has been taking naproxen for his pain but states it has not helped. Pt in the ED, has noted stable vitals with noted temp of 98.1 F, BP of 129/79 and 02 sat of 96% on room air with noted all other VS in normal range. Pt otherwise denies any other symptoms at this time. Chief Complaint: Flank Pain Primary Care Provider: JONO Reviewed notes: Nurses Notes, Medications, Allergies Allergies: Coded Allergies: NO KNOWN ALLERGIES (Unverified , 12/22/11) Home Meds Active Scripts Hydrocodone-Acetaminophen (Hydrocodone Bitartrate/AC 5-325 mg) 1 Tab Tab, 1 TAB PO Q8HR PRN for 3 Days, #9 TAB Prov:KO REYNAGA MD 06/16/22 Cephalexin ( Keflex 500) 500 Mg Cap, 1 CAP PO BID for 3 Days, #6 CAP Prov:KO REYNAGA MD 06/16/22 Levofloxacin Hemihydrate (LEVOFLOXACIN) 750 Mg Tab, 1 TAB PO DAILY, #7 TAB Prov:NIKOLE HARDWICK MD 12/05/21 Reported Medications Budesonide-Formoterol Fumarate (Budesonide/Formoterol Fum 80-4.5 Mcg/Act) 1 Aer Aer, 1 AER IN BID, AER 12/20/24 Cyclobenzaprine HCl (Cyclobenzaprine Hydrochlo) 5 Mg Tab, 1 12/20/24 Discontinued Reported Medications Albuterol Sulfate (VENTOLIN MDI) 90 Mcg Ih, 90 MCG IN, INH 12/20/24 Information Source: Patient Mode of Arrival: Ambulatory Brought in by: self Past Medical History High Lipids, Kidney Stones Past Surgical History Left URSLL with stents Right ESWL Family History: Colon cancer G8 MOTHER Diabetes mellitus G8 MOTHER G8 FATHER G8 BROTHER G8 BROTHER Allergies: Coded Allergies: Shellfish Allergy (Unverified Allergy, Severe, 12/20/24) PER PATIENT Shrimp Flavor (Unverified Allergy, Severe, 12/20/24) PER PATIENT Home Meds Active Scripts Hydrocodone-Acetaminophen (Hydrocodone Bitartrate/AC 5-325 mg) 1 Tab Tab, 1 TAB PO Q8HR PRN for 3 Days, #9 TAB Prov:KO REYNAGA MD 06/16/22 Cephalexin ( Keflex 500) 500 Mg Cap, 1 CAP PO BID for 3 Days, #6 CAP Prov:KO REYNAGA MD 06/16/22 Levofloxacin Hemihydrate (LEVOFLOXACIN) 750 Mg Tab, 1 TAB PO DAILY, #7 TAB Prov:NIKOLE HARDWICK MD 12/05/21 Reported Medications Budesonide-Formoterol Fumarate (Budesonide/Formoterol Fum 80-4.5 Mcg/Act) 1 Aer Aer, 1 AER IN BID, AER 12/20/24 Cyclobenzaprine HCl (Cyclobenzaprine Hydrochlo) 5 Mg Tab, 1 12/20/24 Discontinued Reported Medications Albuterol Sulfate (VENTOLIN MDI) 90 Mcg Ih, 90 MCG IN, INH 12/20/24 Current Medications Current Medications Medications (Trade) Dose Ordered Sig/Annabella Route PRN Reason Start Time Stop Time Status Last Admin Tamsulosin HCl (Flomax) 0.4 mg QPM PO 12/20/24 18:00 12/20/24 17:55 Ceftriaxone Sodium 50 ml @ 100 mls/hr DAILY@09 IV 12/21/24 09:00 12/21/24 09:59 Budesonide (Pulmicort) 0.5 mg BID NEB 12/20/24 22:00 12/21/24 06:28 Ergocalciferol (Vitamin D 50,000 Unit) 50,000 unit Q7D PO 12/21/24 17:00 Review of Systems Constitutional: denies: chills, diaphoresis, fatigue, fever, malaise, sweats, weakness, others EENTM: denies: blurred vision, double vision, ear bleeding, ear discharge, ear drainage, ear pain, ear ringing, eye pain, eye redness, hearing loss, mouth pain, mouth swelling, nasal discharge, nose bleeding, nose congestion, nose pain, photophobia, tearing, throat pain, throat swelling, voice changes, others Respiratory: denies: cough, hemoptysis, orthopnea, SOB at rest, shortness of breath, SOB with excertion, stridor, wheezing, others Cardiovascular: denies: chest pain, dizzy spells, diaphoresis, Dyspnea on exertion, edema, irregular heart beat, left arm pain, lightheadedness, palpitations, PND, syncope, others Gastrointestinal: reports: abdominal pain; denies: abdomen distended, blood streaked bowels, constipated, diarrhea, dysphagia, difficulty swallowing, hematemesis, melena, nausea, poor appetite, poor fluid intake, rectal bleeding, rectal pain, vomiting, others Genitourinary: reports: dysuria, flank pain; denies: burning, frequency, hematuria, incontinence, penile discharge, penile sore, pain, testicle pain, testicle swelling, urgency, others Neurological: denies: dizziness, fainting, headache, left sided numbness, left sided weakness, numbness, paresthesia, pre-existing deficit, right sided numbness, right sided weakness, seizure, speech problems, tingling, tremors, weakness, others Musculoskeletal: denies: back pain, gout, joint pain, joint swelling, muscle pain, muscle stiffness, neck pain, others Integumetry: denies: bruises, change in color, change in hair/nails, dryness, laceration, lesions, lumps, rash, wounds, others Allergic/Immunocompromised: denies: Difficulty Healing, Frequent Infections, Hives, Itching, others Hematologic/Lymphatic: denies: anemia, blood clots, easy bleeding, easy bruising, swollen glands, others Endocrine: denies: excessive hunger, excessive sweating, excessive thirst, excessive urination, flushing, intolerance to cold, intolerance to heat, unexplained weight gain, unexplained weight loss, others Psychiatric: denies: anxiety, bipolar disorder, depression, hopeless, panic disorder, schizophrenia, sleepless, suicidal, others All Other Systems: Reviewed and Negative Vital Signs Vital Signs Date Time Temp Pulse Resp B/P (MAP) Pulse Ox O2 Delivery O2 Flow Rate FiO2 12/21/24 09:00 97.8 92 18 141/71 (94) 93 97.8 12/21/24 08:20 Room Air* 0 21 Physical Exam General Appearance: Mild Distress HEENT: PERRL/EOMI Neck: Full Range of Motion, Normal Inspection Respiratory: Lungs Clear, No Accessory Muscle Use, No Respiratory Distress, Normal Breath Sounds Cardiovascular: No Edema, No JVD, Regular Rate/Rhythm Breast Exam: Deferred Gastrointestinal: LLQ, Soft, Tenderness Genitalia: Deferred Pelvic: Deferred Rectal: Deferred Extremities: Normal inspection, Normal range of motion, No pedal edema Neurologic: Alert (Oriented x4), Normal Affect, Normal Mood, Other (Ambulatory. No gross focal deficit.) Cerebellar Function: NOT DONE Reflexes: NOT DONE Skin: Dry, Normal Color, Warm Lymphatic: NOT DONE Labs/Diagnostic Data Labs Test 12/21/24 06:37 12/20/24 10:12 Range/Units White Blood Count 6.3 4.4-10.8 10^3/uL Red Blood Count 4.20 L 4.5-5.90 10^6/uL Hemoglobin 13.2 L 13.5-17.5 g/dL Hematocrit 37.4 #L 41.0-53.0 % Mean Corpuscular Volume 88.9 80.0-100.0 fL Mean Corpuscular Hemoglobin 31.5 28.0-32.0 pg Mean Corpuscular Hemoglobin Concent 35.4 32.0-36.0 g/dL Red Cell Distribution Width 13.2 11.8-14.3 % Platelet Count 215 140-450 10^3/uL Mean Platelet Volume 7.0 6.9-10.8 fL Neutrophils (%) (Auto) 57.7 37.0-80.0 % Lymphocytes (%) (Auto) 33.0 10.0-50.0 % Monocytes (%) (Auto) 6.4 0.0-12.0 % Eosinophils (%) (Auto) 2.4 0.0-7.0 % Basophils (%) (Auto) 0.5 0.0-2.0 % Neutrophils # (Auto) 3.6 1.6-8.6 10 ^3/uL Lymphocytes # (Auto) 2.1 0.4-5.4 10 ^3/uL Monocytes # (Auto) 0.4 0-1.3 10 ^3/uL Eosinophils # (Auto) 0.2 0-0.8 10 ^3/uL Basophils # (Auto) 0 0-0.2 10 ^3/uL Nucleated Red Blood Cells 0.4 % Prothrombin Time 10.3 9.3-11.8 sec Prothrombin Time INR 0.97 0.9-1.15 Activated Partial Thromboplast Time 27.7 24.5-34.5 SEC Sodium Level 140 136-145 mmol/L Potassium Level 3.8 3.5-5.1 mmol/L Chloride Level 110 H 98-107 mmol/L Carbon Dioxide Level 25 20-31 mmol/L Anion Gap 5 5-15 Blood Urea Nitrogen 16 9-23 mg/dL Creatinine 1.12 0.700-1.30 mg/dL Glomerular Filtration Rate Calc 78 >90 mL/min BUN/Creatinine Ratio 14.3 10.0-20.0 Serum Glucose 106 74-106 mg/dL Hemoglobin A1c 5.6 <5.7 % A1C Uric Acid 6.4 3.7-9.2 mg/dL Calcium Level 8.6 L 8.7-10.4 mg/dL Magnesium Level 2.1 1.6-2.6 mg/dL Total Bilirubin 0.9 0.2-1.0 mg/dL Aspartate Amino Transferase (AST) 16 13-40 U/L Alanine Aminotransferase (ALT) 25 7-40 U/L Alkaline Phosphatase 69 46-116 U/L Total Protein 6.4 5.7-8.2 g/dL Albumin 3.9 3.2-4.8 g/dL Vitamin B12 Level 334 211-911 pg/mL Vitamin D 25-Hydroxy 31.7 30.0-100 ng/mL Thyroid Stimulating Hormone (TSH) 4.75 0.55-4.78 uIU/mL Urine Color Light-yellow Yellow Urine Clarity Clear Clear Urine pH 6.0 5.0-9.0 Urine Specific [place] 1.014 1.001-1.035 Urine Protein Trace H Negative Urine Ketones Negative Negative Urine Blood 3+ H Negative /uL Urine Nitrite Negative Negative Urine Bilirubin Negative Negative Urine Urobilinogen Normal Negative mg/dL Urine Leukocyte Esterase Negative Negative /uL Urine RBC 854 0 - 3 /hpf Urine Microscopic WBC 3 0-3 /HPF Urine Squamous Epithelial Cells Few <5 /hpf Urine Bacteria None seen None Seen /hpf Urine Mucus Few None Seen Urine Glucose Normal Normal mg/dL PATIENT: CHAY DE LA GARZA ACCT: [id number] UNIT: [id number] : 1970 LOC: ER ROOM / BED: / AGE / SEX: 54 / M ADM STATUS: REG ER SERVICE 1032 ORDERING PHYSICIAN: ANITA AGUILAR MD PROCEDURE(s): ABPL - CT AB PEL WO CON-NO ORAL OR IV REASON: L flank pain rad to LLQ ORDER NUMBER(s): [id number], ACCESSION NUMBER(s): [id number] Procedure: CT CT AB PEL WO CON-NO ORAL OR IV 12/20/2024 10:25 AM Indication: L flank pain rad to LLQ Comparison Study: None Technique: Axial images were obtained and reformatted in coronal and sagittal planes. All CT scans at this medical facility are performed using dose modulation techniques as appropriate to a performed exam including the following: Automated exposure control was utilized; adjustment of the MA and/or KV according to patient size; and use of iterative reconstruction technique. CT Dose: CTDI volume is 14.4 mGy. Dose-length product is 956 mGy*cm FINDINGS: Lower Chest: Subcentimeter calcified granuloma in the base lobe. Hepatobiliary: Hepatomegaly and hepatic steatosis. Spleen: Unremarkable. Pancreas: Unremarkable. Adrenal Glands: Unremarkable. tract: The kidneys are normal in size bilaterally . Few subcentimeter nonobstructing bilateral renal calculi are seen measuring up to 7 mm in the right kidney. There is moderate left hydronephrosis and proximal hydroureter due to a 5 mm obstructing stone in the mid to distal left ureter. The urinary bladder is unremarkable. GI tract: The stomach is grossly normal in appearance. No evidence of small bowel obstruction. The large bowel is unremarkable. The appendix is normal. Lymphatics: No mesenteric, retroperitoneal or periportal lymphadenopathy. Vasculature: Aorta is normal in caliber. Scattered calcified plaques are noted. Pelvic Organs: Prostate is moderately enlarged. Bones/soft tissues: No acute abnormality. Discectomy, disc spacer placement laminectomy Other: None. IMPRESSION: 1. Moderate left hydronephrosis due to a 5 mm obstructing stone in mid to distal ureter.Several 2. Subcentimeter nonobstructing bilateral renal calculi measuring up to 7 mm. 3. Hepatomegaly and hepatic steatosis. ATED BY: TEGAN BASHIR MD DICTATED DATE/TIME: 12/20/24 1113 SIGNED BY: TEGAN BASHIR MD SIGNED DATE/TIME: 12/20/24 1113 CC: Assessment Moderate left hydronephrosis left mid/distal ureteral stone, 5 mm Bilateral renal stones, 7 mmm Plan/Recommendation Left URSLL, possible CVAC and left ureteral stent placement Plan discussed with: Patient, Other BRAD HERNANDEZ MD Dec 21, 2024 17:56
[2024-12-22] VITALS (13 sets, daily range): BP systolic 112–143; BP diastolic 70–92; PULSE 74–119; RESP 17–22; TEMP 97.4–98.7; O2SAT 93–100
--- NOTE | 2024-12-22 08:58 | DVH ---
CHEST RADIOGRAPH Indication: Pain Technique: Single frontal view of the chest was obtained COMPARISON: None FINDINGS: Lines and Tubes: None Lungs: Clear Pleura: No effusion. No pneumothorax. Cardiomediastinal contours: Unremarkable Bones: Unremarkable IMPRESSION: No acute disease.
[2024-12-22 09:46] LABS: Basophils # (auto) 0 10 ^3/uL (0-0.2); Basophils % (auto) 0.5 % (0.0-2.0); Eosinophils # (auto) 0.1 10 ^3/uL (0-0.8); Hematocrit 39.3 % (41.0-53.0); Hemoglobin 13.9 g/dL (13.5-17.5); Lymphocytes # (auto) 1.6 10 ^3/uL (0.4-5.4); Lymphocytes % (auto) 23.5 % (10.0-50.0); Mean Corpuscular Hemoglobin 31.4 pg (28.0-32.0); Mean Corpuscular Hgb Conc. 35.4 g/dL (32.0-36.0); Mean Corpuscular Volume 88.6 fL (80.0-100.0); Monocytes # (auto) 0.4 10 ^3/uL (0-1.3); Monocytes % (auto) 5.8 % (0.0-12.0); Neutrophils # (auto) 4.7 10 ^3/uL (1.6-8.6); Neutrophils % (auto) 68.2 % (37.0-80.0); Platelet Count (auto) 225 10^3/uL (140-450); Red Blood Cells 4.44 10^6/uL (4.5-5.90); Red Cell Distribution Width 13.2 % (11.8-14.3); White Blood Cell 6.8 10^3/uL (4.4-10.8)
[2024-12-22 10:03] LABS: Alanine Aminotransferase 26 U/L (7-40); Albumin 4.4 g/dL (3.2-4.8); Alkaline Phosphatase 81 U/L (46-116); Anion Gap 8 (5-15); Aspartate Aminotransferase 13 U/L (13-40); BUN/Creatinine Ratio 12.6 (10.0-20.0); Blood Urea Nitrogen 13 mg/dL (9-23); Calcium 9.4 mg/dL (8.7-10.4); Carbon Dioxide 26 mmol/L (20-31); Chloride 104 mmol/L (98-107); Potassium 3.8 mmol/L (3.5-5.1); Sodium 138 mmol/L (136-145); Total Protein 7.3 g/dL (5.7-8.2)
[2024-12-22 10:04] LABS: Bilirubin, Total 0.9 mg/dL (0.2-1.0)
[2024-12-22 10:12] LABS: Glucose 118 mg/dL (74-106)
[2024-12-22] MEDS ORDERED: PROPOFOL 10 MG/ML 20 ML IV ONE (13:29)
[2024-12-22] MEDS ORDERED: LIDOCAINE 2% (LOCAL ANESTH.) PF 5ml SDV ONE (13:29)
[2024-12-22] MEDS ORDERED: DexAMETHasone SOD PHOS 10MG/1ML VIAL INJ ONE (13:29)
[2024-12-22] MEDS ORDERED: GLYCOPYRROLATE 0.2 MG/ML 1ML VIAL ONE (13:29)
[2024-12-22] MEDS ORDERED: ROCURONIUM 10MG/ML 10ML VIAL IV ONE (13:29)
[2024-12-22] MEDS ORDERED: KETOROLAC TROMETH 30 MG/ML 1ML VIAL ONE (13:29)
[2024-12-22] MEDS ORDERED: SUGAMMADEX 200mg/2ml Vial (100MG/ML) IV ONE (13:29)
[2024-12-22] MEDS ORDERED: ONDANSETRON HCL 4 MG/2 ML VIAL ONE (13:29)
--- NOTE | 2024-12-22 13:37 | DVHPNRES ---
Progress Note Date Seen: Dec 22, 2024 Resident Creating Document: ROGELIO QUIROZ RESIDENT Medical Necessity Reason Pt with a Central, PICC or Fol: No Subjective Review of Systems Mr. Antoine this is a 54-year-old male with past medical history of right-sided nephrostomy and lithotripsy 1 year back, hyperlipidemia, CKD, UTI presents to the ER with a chief complaint of left flank pain radiating to the groin for the past week. Reports pain well micturition with no dysuria. Reports with the left flank pain is sharp in nature and reports it 10/10 in intensity. Patient follows Dr. Sequeira as outpatient. He denies nausea/vomiting/fevers/chills/constipation or diarrhea at this moment. On admission, UA showed RBCs, CT abdomen pelvis completed which showed moderate left hydronephrosis 5 mm nonobstructing stone. Subcentimeter bilateral nonobstructive calculus, 7 mm. Hepatic steatosis. Urologist was consulted. Past medical/surgical history: See above PCP: Marcos, follows Dr. Sequeira urology 12/21-Patient seen and examined at the bedside. Urology consulted. Started tamsulosin. 12/22-patient seen and examined at bedside. Pain is controlled. No acute distress. Patient is scheduled for left-sided ureteroscopic laser lithotripsy, cystoscopy and stent placement. Objective vital signs Vital Sign Date Time Temp Pulse Resp B/P (MAP) Pulse Ox O2 Delivery O2 Flow Rate FiO2 12/22/24 09:00 98.7 78 18 112/71 (85) 96 98.7 12/22/24 08:00 Room Air* 0 21 Total Intake and Output 12/21/24 12/21/24 12/22/24 15:00 23:00 07:00 Intake Total 50 ml 620 ml 500 ml Output Total 375 ml Balance 50 ml 620 ml 125 ml medications Current Medications Medications Dose Ordered Sig/Annabella Route Start Time Stop Time Status Last Admin Dose Admin Tamsulosin HCl 0.4 mg QPM PO 12/20/24 18:00 12/21/24 18:00 0.4 MG Ceftriaxone Sodium 50 ml @ 100 mls/hr DAILY@09 IV 12/21/24 09:00 12/22/24 09:02 100 MLS/HR Sodium Chloride 1,000 ml @ 100 mls/hr Q10H IV 12/20/24 14:30 12/22/24 10:26 100 MLS/HR Acetaminophen/ Hydrocodone Bitart 1 tab Q4HP PRN PO 12/20/24 15:30 12/21/24 03:01 1 TAB Ondansetron HCl 4 mg Q4HP PRN IV 12/20/24 15:30 Acetaminophen 650 mg Q6HP PRN PO 12/20/24 15:30 Morphine Sulfate 2 mg Q4HPRN PRN IV 12/20/24 15:30 12/21/24 05:02 2 MG Budesonide 0.5 mg BID NEB 12/20/24 22:00 12/22/24 06:20 0.5 MG Albuterol 2.5 mg Q4HPRN PRN NEB 12/20/24 15:30 12/22/24 06:20 2.5 MG Ergocalciferol 50,000 unit Q7D PO 12/21/24 17:00 12/21/24 17:00 50,000 UNIT Examination Patient lying in bed, in no acute distress General: Well-built, afebrile, palor, mucosae are moist Cardiovascular: Regular S1 and S2. No murmurs, gallops or rubs. No JVD elevation. No pedal edema Respiratory: Normal B/L air entry on room air. Clear lung sounds on auscultation Abdomen: Soft, abdominal tenderness left-sided and suprapubic. nondistended, normoactive bowel sounds, no rebound tenderness, no organomegaly, no masses. L eft costovertebral angle tenderness. Genitourinary: Deferred MSK/skin: Mobilizes 4 limbs. Skin is dry and warm Neurological: No motor, no sensitive deficits, normal speech. Pupils are isocoric and reactive. Psych/Mental Status: A/Ox3 laboratory and microbiology Laboratory Tests 12/22/24 09:32 Test 12/22/24 09:32 Range/Units Serum Glucose 118 H 74-106 mg/dL Labs and/or images reviewed: Labs reviewed by me, Image(s) reviewed by me Problem List/Assessment/Plan Problem List/Assessment/Plan Bilateral nephrolithiasis, 7 mm L-sided 5 mm obstructing stone Left-sided moderate hydronephrosis Urology consulted - Patient is scheduled for left-sided ureteroscopic laser lithotripsy, cystoscopy and stent placement 12/22. Left URSLL, possible CVAC and left ureteral stent placement Tamsulosin daily started IV NS 100 cc an hour IV ceftriaxone daily Hepatic steatosis likely MAYS Monitor Obesity Counseled regarding healthy lifestyle for more than 22 minutes Plan discussed with patient in which all questions have been answered Goals of care discussed with the patient for more than 27 minutes, full code status Case discussed with Dr. Gardner Plan discussed with: Patient My Orders My Orders Orders - ROGELIO QUIROZ Procedure Category Date Status Time * Urology Consult CONS 12/21/24 Transmitted 16:57 Npo After Midnight ORDERS 12/21/24 Transmitted Npo (Nothing By DIET 12/22/24 Transmitted Mouth) Diet Breakfast Ergocalciferol PHA 12/21/24 In Process (Vitamin D 50,000 17:00 Dietary Evaluation Review Comments: 1) Advance diet as medically feasible 2) Consider CCHO 60gm + low fat diet 3) Continue current plan of care Expected Outcomes/Goals: Pt will meet >75% estimated needs Fu 2-3 days Date of Service: Dec 22, 2024 Billing Provider: SYLVESTER GARDNER MD Common Visit Codes: [id number] INP/OBS CARE(HIGH) ROGELIO QUIROZ Dec 22, 2024 13:37 SYLVESTER GARDNER MD Dec 22, 2024 22:42
[2024-12-22] MEDS ORDERED: KETAMINE 50mg/ML 1ml syringe ONE (13:51)
[2024-12-22] MEDS ORDERED: MEPERIDINE HCL (50 MG/ML) 1 ML VIAL ONE (14:11)
--- NOTE | 2024-12-22 15:54 | DVHOP2 ---
Operative Report - 2 Report Details Date: 12/22/24 Preop Diagnosis: Left distal ureteral calculus causing hydronephrosis and obstructive uropathy, 5 mm Right nephrolithiasis, 7 mm Postop Diagnosis: Same Surgeon: Brad Hernandez Anesthesiologist: Dr. Teran Anesthesia: General Consent: The patient was informed of the risks and benefits of the procedure. These include but are not limited to complications of anesthesia, postoperative infection, incomplete relief of symptoms, recurrence of symptoms, damage to blood vessels, nerves and tendons, deep venous thrombosis, pulmonary embolism and possible need for repeat surgery in the future. Indications for Surgery: Patient has symptomatic intractable pain from a 5 mm left distal ureteral calculus. He also has a incidental 7 mm right nephrolithiasis per CT scan Name of Procedure Performed Left ureteroscopic laser lithotripsy Right extracorporeal shockwave lithotripsy Procedure Details Procedure Details: Patient was taken to the operating room and underwent general anesthesia. He was placed in dorsal lithotomy position with the area of the genitalia prepped and draped in usual sterile manner. Twenty-one Monegasque rigid cystoscope was used to inspect the urethra in the bladder. The left ureteric orifice was cannulated with six Monegasque open-ended catheter and retrograde pyelogram was performed. The filling defect was noted in the distal UVJ region consistent with the stone. A guidewire was then placed into the left renal pelvis. A rigid ureteroscope was used to access the left distal ureter where the stone was identified and fragmented. Larger stone fragments were retrieved using the stone basket. Ureteroscope was removed in entirety. I did not place a stent due to patency of the distal ureter after the procedure. The right kidney stone was identified and placed onto the F2 focus. Two thousand shock waves were delivered for fragmentation. Patient tolerated the procedure well. A temporary Allen catheter was placed after the cystoscopy. Patient was taken to recovery room in stable condition Specimen: Left ureteral calculus Condition Fair Disposition Home BRAD HERNANDEZ MD Dec 22, 2024 15:54
[2024-12-22] MEDS ORDERED: MORPHINE SULFATE INJ 2 MG/ml SYRG IV PRN (16:30)
[2024-12-22] MEDS ORDERED: HYDROmorphone HCL 2 MG/ML VL/or syr IV PRN ×2 (16:30)
[2024-12-22] MEDS ORDERED: MORPHINE SULFATE 4 MG/ML SYR/VIAL IV PRN (16:30)
[2024-12-22] MEDS: IOHEXOL 300 MG/ML 100ML BOTTLE IJ ONE (17:19)
[2024-12-22] MEDS: METOCLOPRAMIDE HCL 5MG/ml INJ 2ml VIAL IV ONE (17:19)
[2024-12-22] MEDS: KETOROLAC TROMETH 30 MG/ML 1ML VIAL IV ONE (17:19)
[2024-12-23 01:00] VITALS: BP 109/70; PULSE 109; RESP 20; TEMP 98; O2SAT 92
[2024-12-23 05:00] VITALS: BP 120/77; PULSE 101; RESP 20; TEMP 98.2; O2SAT 94
[2024-12-23 06:24] LABS: Basophils # (auto) 0 10 ^3/uL (0-0.2); Basophils % (auto) 0.1 % (0.0-2.0); Eosinophils # (auto) 0 10 ^3/uL (0-0.8); Hematocrit 40.8 % (41.0-53.0); Hemoglobin 14.6 g/dL (13.5-17.5); Lymphocytes # (auto) 0.9 10 ^3/uL (0.4-5.4); Lymphocytes % (auto) 9.4 % (10.0-50.0); Mean Corpuscular Hemoglobin 31.5 pg (28.0-32.0); Mean Corpuscular Hgb Conc. 35.8 g/dL (32.0-36.0); Monocytes # (auto) 0.2 10 ^3/uL (0-1.3); Monocytes % (auto) 2.3 % (0.0-12.0); Neutrophils # (auto) 8.4 10 ^3/uL (1.6-8.6); Neutrophils % (auto) 88.2 % (37.0-80.0); Platelet Count (auto) 264 10^3/uL (140-450); Red Blood Cells 4.64 10^6/uL (4.5-5.90); Red Cell Distribution Width 12.9 % (11.8-14.3); White Blood Cell 9.5 10^3/uL (4.4-10.8)
[2024-12-23 06:29] VITALS: PULSE 98; RESP 18; O2SAT 94
[2024-12-23 06:33] LABS: Calcium 9.9 mg/dL (8.7-10.4); Chloride 104 mmol/L (98-107); Potassium 4.1 mmol/L (3.5-5.1); Sodium 137 mmol/L (136-145)
[2024-12-23 06:34] LABS: Anion Gap 12 (5-15); Carbon Dioxide 21 mmol/L (20-31)
[2024-12-23 06:36] VITALS: PULSE 82; RESP 18; O2SAT 98
[2024-12-23 06:39] LABS: BUN/Creatinine Ratio 13.4 (10.0-20.0); Blood Urea Nitrogen 16 mg/dL (9-23)
[2024-12-23 06:40] LABS: Glucose 180 mg/dL (74-106)
[2024-12-23 08:00] VITALS: PULSE 75; RESP 18; O2SAT 95
--- NOTE | 2024-12-23 08:13 | DVHDSRES ---
Discharge Summary Date of Admission Resident Creating Document: ROGELIO QUIROZ RESIDENT Dec 20, 2024 at 15:26 Date of Discharge: Dec 23, 2024 Labs/Diagnostic Data: Laboratory Results Test 12/23/24 04:59 12/22/24 09:32 12/21/24 06:37 12/20/24 10:12 White Blood Count 9.5 10^3/uL (4.4-10.8) Red Blood Count 4.64 10^6/uL (4.5-5.90) Hemoglobin 14.6 g/dL (13.5-17.5) Hematocrit 40.8 % (41.0-53.0) Mean Corpuscular Volume 88.0 fL (80.0-100.0) Mean Corpuscular Hemoglobin 31.5 pg (28.0-32.0) Mean Corpuscular Hemoglobin Concent 35.8 g/dL (32.0-36.0) Red Cell Distribution Width 12.9 % (11.8-14.3) Platelet Count 264 10^3/uL (140-450) Mean Platelet Volume 7.1 fL (6.9-10.8) Neutrophils (%) (Auto) 88.2 % (37.0-80.0) Lymphocytes (%) (Auto) 9.4 % (10.0-50.0) Monocytes (%) (Auto) 2.3 % (0.0-12.0) Eosinophils (%) (Auto) 0.0 % (0.0-7.0) Basophils (%) (Auto) 0.1 % (0.0-2.0) Neutrophils # (Auto) 8.4 10 ^3/uL (1.6-8.6) Lymphocytes # (Auto) 0.9 10 ^3/uL (0.4-5.4) Monocytes # (Auto) 0.2 10 ^3/uL (0-1.3) Eosinophils # (Auto) 0 10 ^3/uL (0-0.8) Basophils # (Auto) 0 10 ^3/uL (0-0.2) Nucleated Red Blood Cells 0.0 % Sodium Level 137 mmol/L (136-145) Potassium Level 4.1 mmol/L (3.5-5.1) Chloride Level 104 mmol/L (98-107) Carbon Dioxide Level 21 mmol/L (20-31) Anion Gap 12 (5-15) Blood Urea Nitrogen 16 mg/dL (9-23) Creatinine 1.19 mg/dL (0.700-1.30) Glomerular Filtration Rate Calc 73 mL/min (>90) BUN/Creatinine Ratio 13.4 (10.0-20.0) Serum Glucose 180 mg/dL (74-106) Calcium Level 9.9 mg/dL (8.7-10.4) Total Bilirubin 0.9 mg/dL (0.2-1.0) Aspartate Amino Transferase (AST) 13 U/L (13-40) Alanine Aminotransferase (ALT) 26 U/L (7-40) Alkaline Phosphatase 81 U/L (46-116) Total Protein 7.3 g/dL (5.7-8.2) Albumin 4.4 g/dL (3.2-4.8) Prothrombin Time 10.3 sec (9.3-11.8) Prothrombin Time INR 0.97 (0.9-1.15) Activated Partial Thromboplast Time 27.7 SEC (24.5-34.5) Hemoglobin A1c 5.6 % A1C (<5.7) Uric Acid 6.4 mg/dL (3.7-9.2) Magnesium Level 2.1 mg/dL (1.6-2.6) Vitamin B12 Level 334 pg/mL (211-911) Vitamin D 25-Hydroxy 31.7 ng/mL (30.0-100) Thyroid Stimulating Hormone (TSH) 4.75 uIU/mL (0.55-4.78) Urine Color Light-yellow (Yellow) Urine Clarity Clear (Clear) Urine pH 6.0 (5.0-9.0) Urine Specific [place] 1.014 (1.001-1.035) Urine Protein Trace (Negative) Urine Ketones Negative (Negative) Urine Blood 3+ /uL (Negative) Urine Nitrite Negative (Negative) Urine Bilirubin Negative (Negative) Urine Urobilinogen Normal mg/dL (Negative) Urine Leukocyte Esterase Negative /uL (Negative) Urine RBC 854 /hpf (0 - 3) Urine Microscopic WBC 3 /HPF (0-3) Urine Squamous Epithelial Cells Few /hpf (<5) Urine Bacteria None seen /hpf (None Seen) Urine Mucus Few (None Seen) Urine Glucose Normal mg/dL (Normal) Other Laboratory Tests 12/23/24 04:59 Brief Hx & Hospital Course: Mr. Antoine this is a 54-year-old male with past medical history of right-sided nephrostomy and lithotripsy 1 year back, hyperlipidemia, CKD, UTI presents to the ER with a chief complaint of left flank pain radiating to the groin for the past week. Reports pain well micturition with no dysuria. Reports with the left flank pain is sharp in nature and reports it 10/10 in intensity[address] Patient follows Dr. Sequeira as outpatient. He denies nausea/vomiting/fevers/chills/constipation or diarrhea at this moment. On admission, UA showed RBCs, CT abdomen pelvis completed which showed moderate left hydronephrosis 5 mm nonobstructing stone. Subcentimeter bilateral nonobstructive calculus, 7 mm. Hepatic steatosis. Urologist was consulted. Past medical/surgical history: See above PCP: Marcos, follows Dr. Sequeira urology During the hospitalization,UA showed RBCs, CT abdomen pelvis completed which showed moderate left hydronephrosis 5 mm nonobstructing stone. Subcentimeter bilateral nonobstructive calculus, 7 mm. Hepatic steatosis. Tamsulosin daily started along with IV NS 100 cc an hour and IV ceftriaxone daily. Urologist was consulted - recommended endoscopic laser lithotripsy and cystoscopy and stent placement. Patient underwent Left ureteroscopic laser lithotripsy and Right extracorporeal shockwave lithotripsy, Allen catheter was placed after cystoscopy. Urology cleared the patient with the advice to follow up outpatient within 7 days. Okay to DC with Allen catheter. 12/23 - patient is hemodynamically stable, clinically stable, no acute distress therefore is being discharged home with Allen catheter in place with the recommendation follow up with the Urology as outpatient. Discharge medications include levofloxacin 750 mg daily for the next 7 days. Advised to follow up with dc clinic within 7 days. Discharge diagnosis Bilateral nephrolithiasis, 7 mm s/p Right extracorporeal shockwave lithotripsy 12/22 L-sided 5 mm obstructing stone Left-sided moderate hydronephrosis s/p Left ureteroscopic laser lithotripsy 12/22 Hepatic steatosis likely MAYS Obesity Consults/Reason for consult Urologist for obstructive kidney stone Operations or Procedures Operative Report - 2 Report Details Date: 12/22/24 Preop Diagnosis: Left distal ureteral calculus causing hydronephrosis and obstructive uropathy, 5 mm Right nephrolithiasis, 7 mm Postop Diagnosis: Same Surgeon: Brad Sequeira Anesthesiologist: Dr. Teran Anesthesia: General Consent: The patient was informed of the risks and benefits of the procedure. These include but are not limited to complications of anesthesia, postoperative infection, incomplete relief of symptoms, recurrence of symptoms, damage to blood vessels, nerves and tendons, deep venous thrombosis, pulmonary embolism and possible need for repeat surgery in the future. Indications for Surgery: Patient has symptomatic intractable pain from a 5 mm left distal ureteral calculus. He also has a incidental 7 mm right nephrolithiasis per CT scan Name of Procedure Performed Left ureteroscopic laser lithotripsy Right extracorporeal shockwave lithotripsy Procedure Details Procedure Details: Patient was taken to the operating room and underwent general anesthesia. He was placed in dorsal lithotomy position with the area of the genitalia prepped and draped in usual sterile manner. Twenty-one English rigid cystoscope was used to inspect the urethra in the bladder. The left ureteric orifice was cannulated with six English open-ended catheter and retrograde pyelogram was performed. The filling defect was noted in the distal UVJ region consistent with the stone. A guidewire was then placed into the left renal pelvis. A rigid ureteroscope was used to access the left distal ureter where the stone was identified and fragmented. Larger stone fragments were retrieved using the stone basket. Ureteroscope was removed in entirety. I did not place a stent due to patency of the distal ureter after the procedure. The right kidney stone was identified and placed onto the F2 focus. Two thousand shock waves were delivered for fragmentation. Patient tolerated the procedure well. A temporary Allen catheter was placed after the cystoscopy. Patient was taken to recovery room in stable condition Specimen: Left ureteral calculus Condition Fair Disposition 2 Home BRAD SEQUEIRA MD Dec 22, 2024 15:54 DICTATED BY:BRAD SEQUEIRA MD DICTATED DATE/TIME:12/22/24 1558 ELECTRONICALLY SIGNED BY:BRAD SEQUEIRA MD 12/22/24 1747 ELECTRONICALLY CO-SIGNED BY: ORDERING PHYSICIAN: ANITA AGUILAR MD PROCEDURE(s): ABPL - CT AB PEL WO CON-NO ORAL OR IV REASON: L flank pain rad to LLQ ORDER NUMBER(s): [id number], ACCESSION NUMBER(s): [id number] Procedure: CT CT AB PEL WO CON-NO ORAL OR IV 12/20/2024 10:25 AM Indication: L flank pain rad to LLQ Comparison Study: None Technique: Axial images were obtained and reformatted in coronal and sagittal planes. All CT scans at this medical facility are performed using dose modulation techniques as appropriate to a performed exam including the following: Automated exposure control was utilized; adjustment of the MA and/or KV according to patient size; and use of iterative reconstruction technique. CT Dose: CTDI volume is 14.4 mGy. Dose-length product is 956 mGy*cm FINDINGS: Lower Chest: Subcentimeter calcified granuloma in the base lobe. Hepatobiliary: Hepatomegaly and hepatic steatosis. Spleen: Unremarkable. Pancreas: Unremarkable. Adrenal Glands: Unremarkable. tract: The kidneys are normal in size bilaterally . Few subcentimeter nonobstructing bilateral renal calculi are seen measuring up to 7 mm in the right kidney. There is moderate left hydronephrosis and proximal hydroureter due to a 5 mm obstructing stone in the mid to distal left ureter. The urinary bladder is unremarkable. GI tract: The stomach is grossly normal in appearance. No evidence of small bowel obstruction. The large bowel is unremarkable. The appendix is normal. Lymphatics: No mesenteric, retroperitoneal or periportal lymphadenopathy. Vasculature: Aorta is normal in caliber. Scattered calcified plaques are noted. Pelvic Organs: Prostate is moderately enlarged. Bones/soft tissues: No acute abnormality. Discectomy, disc spacer placement laminectomy Other: None. IMPRESSION: 1. Moderate left hydronephrosis due to a 5 mm obstructing stone in mid to distal ureter.Several 2. Subcentimeter nonobstructing bilateral renal calculi measuring up to 7 mm. 3. Hepatomegaly and hepatic steatosis. ATED BY: TGEAN BASHIR MD DICTATED DATE/TIME: 12/20/24 111 SIGNED BY: TEGAN BASHIR MD SIGNED DATE/TIME: 12/20/24 111 CC: Condition at Discharge: Fair Final Diagnosis/Problems List Bilateral nephrolithiasis, 7 mm s/p Right extracorporeal shockwave lithotripsy 12/22 L-sided 5 mm obstructing stone Left-sided moderate hydronephrosis s/p Left ureteroscopic laser lithotripsy 12/22 Hepatic steatosis likely MAYS Obesity Discharge Disposition: Home Discharge Instruct/Medications Diet: Renal Activity: Light activity Follow Up/Referral: Follow up with urologist as outpatient within 7 days Follow up with primary care physician within 7 days Follow up with DC clinic within 7 days Medications: Per EMR Discharge Statement: "Patient was advised to return to the ER or call 911 if any headaches, dizziness, shortness of breath, chest pain, abdominal pain, bleeding, fevers, or worsening of medical condition. Patient was counseled about treatment plan, medications, possible side effects, patientverbalized understanding. All questions were answered to the best of my ability. This discharge took greater then 30 minutes in planning, reviewing documentation, counseling the patient, and discussing with other team members." ASSESSMENT ASSESSMENT Assessment Bilateral nephrolithiasis, 7 mm s/p Right extracorporeal shockwave lithotripsy 12/22 L-sided 5 mm obstructing stone s/p Left ureteroscopic laser lithotripsy 12/22 Left-sided moderate hydronephrosis Date of Service: Dec 23, 2024 Billing Provider: SYLVESTER GARDNER MD Common Visit Codes: 00474-DSM/OBS DISCH DAY >30min ROGELIO QUIROZ RESIDENT Dec 23, 2024 08:13 SYLVESTER GARDNER MD Dec 23, 2024 22:00
[2024-12-23] MEDS ORDERED: TAMS-35 PO (08:14)
== END 2024-12-23 09:15 | disposition home or self-care (01) | DRG 446 ==
LOC: ER 10:06 → OVERFLOW 15:26 → WEST WING 21:00
PROVIDERS: ADMIT Internal Medicine; ATTEND Urology
PROC: BT1F1ZZ Fluoroscopy of Left Kidney, Ureter and Bladder using Low Osmolar Contrast (ICD-10-PCS; 2024-12-22)
PROC: 0TC78ZZ Extirpation of Matter from Left Ureter, Via Natural or Artificial Opening Endoscopic (ICD-10-PCS; principal; 2024-12-22 14:50)
PROC: 0TF3XZZ Fragmentation in Right Kidney Pelvis, External Approach (ICD-10-PCS; 2024-12-22 14:50)
DX: N13.2 Hydronephrosis with renal and ureteral calculous obstruction (principal); R16.0 Hepatomegaly, not elsewhere classified; K76.0 Fatty (change of) liver, not elsewhere classified; E66.9 Obesity, unspecified; E78.5 Hyperlipidemia, unspecified; F17.210 Nicotine dependence, cigarettes, uncomplicated; N18.9 Chronic kidney disease, unspecified; Z79.2 Long term (current) use of antibiotics; Z79.899 Other long term (current) drug therapy; Z79.1 Long term (current) use of non-steroidal anti-inflammatories (NSAID); Z79.891 Long term (current) use of opiate analgesic; Z87.442 Personal history of urinary calculi; Z80.0 Family history of malignant neoplasm of digestive organs; Z83.3 Family history of diabetes mellitus; Z87.440 Personal history of urinary (tract) infections; Z68.31 Body mass index [BMI] 31.0-31.9, adult; Z93.6 Other artificial openings of urinary tract status
CPT/HCPCS: 36415; 71045; 74176; 76775; 80048; 80053; 81001; 82306; 82607; 83036; 83735; 84443; 84550; 85025; 85610; 85730; 94640; 96365; 96366; 96368; 96375; G0378; J1100; J1885; J2003; J2405; J2704